=== PATIENT | female | born 1935 ===

== ENCOUNTER 2017-03-22 15:46 | Inpatient (IN) | payer MEDICARE, OTHER ==
--- NOTE | 2017-03-22 16:29 | C.PDOC ---
History Of Present Illness 81-year-old female, Diabetes and Hypertension, presents to the emergency department with complaints of weakness to lower extremities, pain, increased redness and swelling x2 weeks. States it started oozing a few days ago. Denies numbness/weakness, chest pain, shortness of breath, fever, or any other associated symptoms. No other complaints at this time. Time Seen by Provider: 03/22/17 16:29 Chief Complaint (Nursing): Abnormal Skin Integrity History Per: Patient History/Exam Limitations: no limitations Onset/Duration Of Symptoms: Days Current Symptoms Are (Timing): Still Present Past Medical History Reviewed: Historical Data, Nursing Documentation, Vital Signs Vital Signs: Last Vital Signs Temp 98.5 F 03/22/17 16:12 Pulse 83 03/22/17 16:12 Resp 18 03/22/17 16:12 BP 125/66 03/22/17 16:12 Pulse Ox 100 03/22/17 18:35 - Medical History PMH: HTN Family History: States: No Known Family Hx - Social History Hx Alcohol Use: No Hx Substance Use: No - Immunization History Hx Tetanus Toxoid Vaccination: Yes Hx Influenza Vaccination: Yes Hx Pneumococcal Vaccination: Yes Review Of Systems Except As Marked, All Systems Reviewed And Found Negative. Constitutional: Positive for: Weakness. Negative for: Fever, Chills Cardiovascular: Negative for: Chest Pain, Palpitations Respiratory: Negative for: Shortness of Breath Gastrointestinal: Negative for: Nausea, Vomiting Musculoskeletal: Positive for: Leg Pain Neurological: Negative for: Weakness, Numbness, Headache, Dizziness Physical Exam - Physical Exam Appears: Non-toxic, No Acute Distress Skin: Warm, Dry, No Rash Head: Atraumatic, Normacephalic Eye(s): bilateral: Normal Inspection, PERRL Nose: Normal Oral Mucosa: Moist Lips: Normal Appearing Neck: Normal ROM Chest: Symmetrical Cardiovascular: Rhythm Regular, No Murmur Respiratory: Normal Breath Sounds, No Accessory Muscle Use Extremity: Normal ROM, Tenderness, Pedal Edema, Calf Tenderness, Capillary Refill (<2 seconds), No Deformity, Other (Chronic venous changes, B/L pedal edema there is a foul odor and serous discharge from anterior tibular region) Neurological/Psych: Oriented x3, Normal Speech ED Course And Treatment - Laboratory Results Result Diagrams: 03/22/17 17:04 03/22/17 17:04 Lab Interpretation: Abnormal ECG: Interpreted By Me, Viewed By Me (Dr Aguayo) ECG Rhythm: Sinus Rhythm, 1st Degree HB ECG Interpretation: No Acute Changes, No Changes From Prior (04/22/09) O2 Sat by Pulse Oximetry: 100 Pulse Ox Interpretation: Normal - Other Rad CXR X-Ray: Viewed By Me, Read By Radiologist (Dr. Armstrong, Prudence VMahesh) Interpretation: IMPRESSION: Limited evaluation of the left costophrenic angle. Small left pleural effusion cannot be excluded. No significant left pleural effusion suspect. Appearance could well be due to the large body habitus and prominent soft tissues in portable technique. No consolidation appreciated. Possible minimal pulmonary venous congestion - chronicity unknown Medical Decision Making Medical Decision Making: Impression B/L lower extremity weakness, pain and swelling Plan: * EKG * BNP, CMP, Ketone Serum * CBC, ESR, PTT, PT * Chest X-Ray * Zosyn, IVFs, Vancomycin * Blood Cultures Case discussed with Dr Aguayo who also examined patient at bedside. He agrees with plan and recommends admission for cellulitis All diagnostics reviewed Contact hospitalist Dr Hardy for admission and accepts case for observation Disposition - Disposition Disposition: HOSPITALIZED Disposition Time: 17:44 Condition: STABLE - POA Present On Arrival: None - Clinical Impression Clinical Impression: Cellulitis of lower extremity - PA / LOGISTICS OPERATIONS MANAGER / Resident Statement MD/DO has examined the patient and agrees with the treatment plan. - Scribe Statement The provider has reviewed the documentation as recorded by the Scribe (Antony Chinchilla) All medical record entries made by the Scribe were at my direction and personally dictated by me. I have reviewed the chart and agree that the record accurately reflects my personal performance of the history, physical exam, medical decision making, and the department course for this patient. I have also personally directed, reviewed, and agree with the discharge instructions and disposition. Decision To Admit - Pt Status Changed To: Hospital Disposition Of: Observation - . Bed Request Type: Regular Admitting Physician: Kavitha Hardy Patient Diagnosis: Cellulitis of lower extremity
--- NOTE | 2017-03-22 16:52 | RAD ---
PROCEDURE: CHEST RADIOGRAPH, 1 VIEW HISTORY: SOB COMPARISON: None available. FINDINGS: LUNGS: Possible minimal pulmonary venous congestion -chronicity unknown. Shallow lung inspiration and large body habitus noted limited visualization of the left lung base PLEURA: No pneumothorax. A small left pleural effusion be excluded given the appearance. The soft tissue prominence body habitus and breast soft tissues contribute to this portable technique CARDIOVASCULAR: Cardiomegaly. Atherosclerotic vascular calcification - aortic knob OSSEOUS STRUCTURES: Bilateral shoulder arthrosis right greater than left sign VISUALIZED UPPER ABDOMEN: Normal. OTHER FINDINGS: None. IMPRESSION: Limited evaluation of the left costophrenic angle. Small left pleural effusion cannot be excluded. No significant left pleural effusion suspect. Appearance could well be due to the large body habitus and prominent soft tissues in portable technique No consolidation appreciated Possible minimal pulmonary venous congestion - chronicity unknown
[2017-03-22 17:12] LABS: BASO % 0.4 % (0.0-2.0); EOS # 0.5 K/uL (0.0-0.7); EOS % 4.6 % (0.0-4.0); HEMATOCRIT 28.3 % (34.0-47.0); LYMPH # 0.6 K/uL (1.0-4.3); MEAN CELL VOLUME 85.9 fL (81.0-99.0); MEAN CORPUSCULAR HGB CONC 32.6 g/dL (33.0-37.0); MEAN PLATELET VOLUME 8.6 fL (7.2-11.7); MONO # 0.7 K/uL (0.0-0.8); MONO % 7.3 % (0.0-10.0); PLATELET COUNT 292 K/uL (130-400); RED CELL DISTRIBUTION WIDTH 14.9 % (11.5-14.5)
[2017-03-22 17:16] LABS: INR 1.1
[2017-03-22 17:20] LABS: CHLORIDE 105 mmol/L (98-107); POTASSIUM 4.6 mmol/L (3.6-5.2); SODIUM 138 mmol/L (132-148)
[2017-03-22 17:22] LABS: GFR AFRICAN-AMERICAN > 60
[2017-03-22 17:23] LABS: ALB/GLOB RATIO 1.1 (1.0-2.1); ALKALINE PHOSPHATASE 80 U/L (38-126); ALT/SGPT 45 U/L (9-52); AST/SGOT 102 U/L (14-36); BILIRUBIN,TOTAL 0.6 mg/dL (0.2-1.3); BLOOD UREA NITROGEN 27 mg/dL (7-17); CARBON DIOXIDE 23 mmol/L (22-30); GLUCOSE,RANDOM 136 mg/dL (65-105)
[2017-03-22] MEDS ORDERED: Piperacillin/Tazobact 3.375 gm 100 ML IV STA (17:42)
[2017-03-22] MEDS ORDERED: Vancomycin 1 GM 1 GM/250 ML BAG IVPB ONE (17:55)
[2017-03-22] MEDS ORDERED: Piperacillin/Tazobact 3.375 gm 100 ML IVPB ONE (17:56)
[2017-03-22 18:36] LABS: ERYTHROCYTE SEDIMENTATION RATE 72 mm/hr (0-20)
[2017-03-22 18:59] LABS: EOSINOPHIL 8 % (0-4); NEUTROPHIL 80 % (50-75); TOTAL CELLS COUNTED 100
--- NOTE | 2017-03-22 19:52 | CP.PCM.HP ---
<Lilibeth Fuller - Last Filed: 03/22/17 19:47> History of Present Illness - History of Present Illness History of Present Illness: Chief Complaint: "Legs hurt" 81 year old female with past medical history of diabetes type II who presents to the ED from home by ambulance due to leg swelling and redness. Patient is a bad historian as she does not know who called the ambulance. Patient states she noticed both of her lower legs become red yesterday. Patient states her legs are only painful to touch. Patient states her legs are normally swollen at the end of the day. Per patient she has not been able to walk for the past 1-2 months but she normally uses a walker for assistance. Patient lives with her . Patient states she has never been previously admitted for her legs. Patient denies fever, headache, shortness of breath, chest pain, nausea, vomiting, diarrhea, or constipation. Present on Admission - Present on Admission Any Indicators Present on Admission: No History of DVT/PE: No History of Uncontrolled Diabetes: No Urinary Catheter: No Decubitus Ulcer Present: No Review of Systems - Review of Systems Systems not reviewed;Unavailable: Language Barrier (bangladeshi speaking) - Constitutional Constitutional: absent: Chills, Excessive Sweating, Fever, Headache - Cardiovascular Cardiovascular: absent: Chest Pain, Lightheadedness, Palpitations - Respiratory Respiratory: absent: Cough, Dyspnea - Gastrointestinal Gastrointestinal: absent: Abdominal Pain, Constipation, Diarrhea, Nausea, Vomiting - Genitourinary Genitourinary: absent: Change in Urinary Stream, Difficulty Urinating, Dysuria - Musculoskeletal Additional comments: Patient has not been able to walk for the past 1-2 months. Patient states she normally can walk with the help of a walker. - Neurological Neurological: absent: Dizziness, Numbness, Headaches Past Patient History - Infectious Disease Hx of Infectious Diseases: None - Past Medical History & Family History Past Medical History?: Yes Past Family History: Reviewed and not pertinent (Mother passed at the age of 101 ; Father passed at the age of 80) - Past Social History Smoking Status: Never Smoked Alcohol: None Drugs: Denies Home Situation {Lives}: With Family (lives with ) - ENDOCRINE/METABOLIC Hx Diabetes Mellitus Type 2: Yes - PSYCHIATRIC Hx Substance Use: No - ANESTHESIA Hx Anesthesia: No Meds Allergies/Adverse Reactions: Allergies Allergy/AdvReac Type Severity Reaction Status Date / Time No Known Allergies Allergy Verified 03/22/17 16:00 Physical Exam - Constitutional Appears: No Acute Distress - Eye Exam Eye Exam: EOMI, PERRL - ENT Exam ENT Exam: Mucous Membranes Moist - Respiratory Exam Respiratory Exam: Clear to Auscultation Bilateral, NORMAL BREATHING PATTERN - Cardiovascular Exam Cardiovascular Exam: REGULAR RHYTHM, +S1, +S2 - GI/Abdominal Exam GI & Abdominal Exam: Normal Bowel Sounds, Soft. absent: Distended, Tenderness - Extremities Exam Extremities exam: Positive for: pedal edema, tenderness Additional comments: Bilateral lower extremity edema, erythema - Neurological Exam Neurological exam: Alert, Oriented x3 - Skin Skin Exam: Rash, Warm Additional comments: Bilateral lower extremity red, warm, erythema Results - Vital Signs Recent Vital Signs: Last Vital Signs Temp 98.5 F 03/22/17 16:12 Pulse 83 03/22/17 16:12 Resp 18 03/22/17 16:12 BP 125/66 03/22/17 16:12 Pulse Ox 100 03/22/17 18:38 - Labs Result Diagrams: 03/22/17 17:04 03/22/17 17:04 Assessment & Plan - Assessment and Plan (Free Text) Assessment: 81 year old female with past medical history of diabetes type II who presents to the ED from home by ambulance due to leg swelling and redness. Plan: 1.) Cellulitis * Vancomycin IVPB 1G Q12h * Zosyn 3.375gm Q6h * f/u blood culture * No leukocytosis * Trend CBC daily * Monitor daily for fevers * f/u ESR * f/u venous dopplers * PT 2.) Diabetes Type II * f/u hemoglobin A1C * Insulin Sliding Scale * Accu Checks * Patient home medications unknown due to patient being a poor historian * f/u with family and or pharmacy for home medication * Primary Care Doctor Rhina as per patient 3.) Anemia * Monitor H/H * 9.2/28.3 * Baseline unknown * f/u Iron Studies * Monitor CBC 4.) Elevated AST * Monitor AST * If remains high: order hepatitis level 5.) Pleural Effusion * Chest X-ray ordered (03/22/17): Limited evaluation of the left costophrenic angle. Small left pleural effusion cannot be excluded. No significant pleural effusion suspect. Appearance could well be due to the large body habitus and prominent soft tissues in portable technique. No consolidation appreciated. * Ordered Lasix 40IV x1 * O2: 100% RA * BNP 272 6.) Prophylaxis * Protonix 40mg PO daily * SCD contraindicated * Lovenox 40mg SQ daily - Date & Time Date: 03/22/17 Time: 17:40 <Martin Bowers - Last Filed: 03/23/17 15:52> Results - Vital Signs Recent Vital Signs: Last Vital Signs Temp 99.3 F 03/23/17 07:05 Pulse 95 H 03/23/17 07:05 Resp 18 03/23/17 07:05 BP 131/58 L 03/23/17 10:22 Pulse Ox 97 03/23/17 07:05 - Labs Result Diagrams: 03/23/17 06:22 03/23/17 06:22 Labs: Laboratory Results - last 24 hr 03/22/17 03/23/17 03/23/17 21:42 06:22 06:22 WBC 10.0 RBC 3.31 L Hgb 9.3 L Hct 28.6 L MCV 86.5 MCH 27.9 MCHC 32.3 L RDW 14.9 H Plt Count 282 MPV 9.0 Neut % (Auto) 81.7 H Lymph % (Auto) 7.6 L [place] % (Auto) 8.9 Eos % (Auto) 1.7 Baso % (Auto) 0.1 Neut # 8.2 H Lymph # 0.8 L [place] # 0.9 H Eos # 0.2 Baso # 0.0 Neutrophils % (Manual) 82 H Lymphocytes % (Manual) 7 L Monocytes % (Manual) 6 Eosinophils % (Manual) 3 Basophils % (Manual) 2 Platelet Estimate Normal Hypochromasia (manual) Slight Poikilocytosis (manual Slight Anisocytosis (manual) Slight Sodium 137 Potassium 4.1 Chloride 98 Carbon Dioxide 26 Anion Gap 17 BUN 23 H Creatinine 1.0 Est GFR ( Amer) > 60 Est GFR (Non-Af Amer) 53 POC Glucose (mg/dL) 215 H Random Glucose 205 H Hemoglobin A1c Calcium 8.6 Iron TIBC % Saturation Ferritin 40.6 Total Bilirubin 0.6 AST 103 H ALT 52 Alkaline Phosphatase 84 Total Protein 6.5 Albumin 3.3 L Globulin 3.2 Albumin/Globulin Ratio 1.0 03/23/17 03/23/17 03/23/17 06:22 06:22 06:39 WBC RBC Hgb Hct MCV MCH MCHC RDW Plt Count MPV Neut % (Auto) Lymph % (Auto) [place] % (Auto) Eos % (Auto) Baso % (Auto) Neut # Lymph # [place] # Eos # Baso # Neutrophils % (Manual) Lymphocytes % (Manual) Monocytes % (Manual) Eosinophils % (Manual) Basophils % (Manual) Platelet Estimate Hypochromasia (manual) Poikilocytosis (manual Anisocytosis (manual) Sodium Potassium Chloride Carbon Dioxide Anion Gap BUN Creatinine Est GFR ( Amer) Est GFR (Non-Af Amer) POC Glucose (mg/dL) 213 H Random Glucose Hemoglobin A1c 9.7 H Calcium Iron 25 L TIBC 273 % Saturation 9 L Ferritin Total Bilirubin AST ALT Alkaline Phosphatase Total Protein Albumin Globulin Albumin/Globulin Ratio 03/23/17 11:28 WBC RBC Hgb Hct MCV MCH MCHC RDW Plt Count MPV Neut % (Auto) Lymph % (Auto) [place] % (Auto) Eos % (Auto) Baso % (Auto) Neut # Lymph # [place] # Eos # Baso # Neutrophils % (Manual) Lymphocytes % (Manual) Monocytes % (Manual) Eosinophils % (Manual) Basophils % (Manual) Platelet Estimate Hypochromasia (manual) Poikilocytosis (manual Anisocytosis (manual) Sodium Potassium Chloride Carbon Dioxide Anion Gap BUN Creatinine Est GFR ( Amer) Est GFR (Non-Af Amer) POC Glucose (mg/dL) 338 H Random Glucose Hemoglobin A1c Calcium Iron TIBC % Saturation Ferritin Total Bilirubin AST ALT Alkaline Phosphatase Total Protein Albumin Globulin Albumin/Globulin Ratio Attending/Attestation - Attestation I have personally seen and examined this patient.: Yes I have fully participated in the care of the patient.: Yes I have reviewed all pertinent clinical information: Yes Notes (Text): 03/23/17 15:51 Patient was seen and examined at bedside with the resident Patient admitted for cellulitis and bilateral lower extremity edema We started the patient on antibiotics and also on Lasix We will obtain detailed the history from patient's family and also we'll obtain her home medication I discussed the plan of care with the resident in detail and agree with the above history and physical and assessment/plan.
[2017-03-22] MEDS: (Novolin R) Insulin Human Regular 100 units/ml vial SC SCH (23:15)
[2017-03-23] MEDS: Piperacill/Tazo 3.375gm in Dex 3.375 GM/50 ML BAG IVPB SCH ×4 (00:57→19:17)
[2017-03-23] MEDS: Vancomycin 1 gm/NS 200 ml 1 GM/200 ML BAG IVPB SCH ×2 (04:54→17:25)
[2017-03-23 06:45] LABS: CHLORIDE 98 mmol/L (98-107); POTASSIUM 4.1 mmol/L (3.6-5.2); SODIUM 137 mmol/L (132-148)
[2017-03-23 06:47] LABS: AST/SGOT 103 U/L (14-36); BILIRUBIN,TOTAL 0.6 mg/dL (0.2-1.3); CARBON DIOXIDE 26 mmol/L (22-30); GFR AFRICAN-AMERICAN > 60
[2017-03-23 06:48] LABS: ALKALINE PHOSPHATASE 84 U/L (38-126); ALT/SGPT 52 U/L (9-52); BLOOD UREA NITROGEN 23 mg/dL (7-17); CALCIUM 8.6 mg/dl (8.6-10.4); GLUCOSE,RANDOM 205 mg/dL (65-105); TOTAL PROTEIN 6.5 g/dL (6.3-8.3)
[2017-03-23 07:00] LABS: IRON 25 ug/dL (37-170)
[2017-03-23 07:08] LABS: BASO % 0.1 % (0.0-2.0); EOS # 0.2 K/uL (0.0-0.7); EOS % 1.7 % (0.0-4.0); HEMATOCRIT 28.6 % (34.0-47.0); LYMPH # 0.8 K/uL (1.0-4.3); LYMPH % 7.6 % (20.0-40.0); MEAN CELL VOLUME 86.5 fL (81.0-99.0); MEAN CORPUSCULAR HEMOGLOBIN 27.9 pg (27.0-31.0); MEAN CORPUSCULAR HGB CONC 32.3 g/dL (33.0-37.0); MONO # 0.9 K/uL (0.0-0.8); MONO % 8.9 % (0.0-10.0); PLATELET COUNT 282 K/uL (130-400); RED CELL DISTRIBUTION WIDTH 14.9 % (11.5-14.5)
[2017-03-23 08:47] LABS: BASOPHIL 2 % (0-2); EOSINOPHIL 3 % (0-4); NEUTROPHIL 82 % (50-75); TOTAL CELLS COUNTED 100
[2017-03-23] MEDS: (Novolin R) Insulin Human Regular 100 units/ml vial SC SCH ×4 (10:22→21:45)
[2017-03-23] MEDS: Pantoprazole 40 mg EC Tab PO SCH (10:22)
[2017-03-23] MEDS: Enoxaparin 40 mg Syringe SC SCH (11:05)
--- NOTE | 2017-03-23 11:13 | CARD ---
APPROVED REPORT EKG Measurement Heart [id number] <Conclusion> Sinus rhythm with 1st degree AV block Nonspecific ST abnormality Abnormal ECG
--- NOTE | 2017-03-23 17:16 | CP.PCM.PN ---
<Sandhya Pendleton - Last Filed: 03/23/17 20:54> Subjective - Date & Time of Evaluation Date of Evaluation: 03/23/17 Time of Evaluation: 08:00 - Subjective Subjective: PGY-1 Medicine note- Dr. Bowers's Service Patient seen and examined at bedside and in no acute distress. Patient says her legs are not bothering her much. Patient denies shortness of breath, chest pain, nausea, or vomiting. Patient has not had a bowel movement yesterday or today. Patient is urinating normally. Patient is eating well. Objective - Vital Signs/Intake and Output Vital Signs (last 24 hours): Temp Pulse Resp BP Pulse Ox 99.3 F 95 H 18 131/58 L 97 03/23/17 07:05 03/23/17 07:05 03/23/17 07:05 03/23/17 10:22 03/23/17 07:05 Intake and Output: 03/23/17 03/23/17 06:59 18:59 Intake Total 400 240 Output Total 600 Balance -200 240 - Medications Medications: Current Medications Enoxaparin Sodium (Lovenox) 40 mg SC DAILY [facility] Last Admin: 03/23/17 11:05 Dose: 40 mg Folic Acid (Folic Acid) 1 mg PO DAILY [facility] Furosemide (Lasix) 20 mg PO DAILY [facility] Last Admin: 03/23/17 10:22 Dose: 20 mg Hydrochlorothiazide (Hydrodiuril) 25 mg PO DAILY [facility] Last Admin: 03/23/17 10:22 Dose: 25 mg Piperacillin Sod/Tazobactam Sod (Zosyn 3.375 Gm Iv Premix) 3.375 gm in 50 mls @ 100 mls/hr IVPB Q6H [facility] Last Admin: 03/23/17 12:04 Dose: 100 mls/hr Vancomycin/Sodium Chloride (Vancocin) 1 gm in 200 mls @ 133 mls/hr IVPB Q12H [facility] Stop: 03/28/17 05:01 Last Admin: 03/23/17 04:54 Dose: 133 mls/hr Insulin Human Isoph/Insulin Regular (Novolin 70/30 (70/30 Units/Ml) 10 Ml) 20 units SC Q12 [facility] Insulin Human Regular (Novolin R) 0 unit SC ACHS [facility] PRN Reason: Protocol Last Admin: 03/23/17 14:29 Dose: 6 unit Levothyroxine Sodium (Synthroid) 25 mcg PO DAILY@0630 [facility] Losartan Potassium (Cozaar) 100 mg PO DAILY [facility] Last Admin: 03/23/17 10:22 Dose: 100 mg Metformin HCl (Glucophage) 500 mg PO BID [facility] Pantoprazole Sodium (Protonix Ec Tab) 40 mg PO DAILY [facility] Last Admin: 03/23/17 10:22 Dose: 40 mg Sitagliptin Phosphate (Januvia) 50 mg PO DAILY [facility] - Labs Labs: 03/23/17 06:22 03/23/17 06:22 PT 11.9 SECONDS (9.7-12.2) 03/22/17 17:04 INR 1.1 03/22/17 17:04 APTT 25 SECONDS (21-34) 03/22/17 17:04 - Constitutional Appears: Well, No Acute Distress - Head Exam Head Exam: ATRAUMATIC, NORMAL INSPECTION, NORMOCEPHALIC - Eye Exam Eye Exam: EOMI, Normal appearance, PERRL - ENT Exam ENT Exam: Mucous Membranes Moist, Normal Exam - Neck Exam Neck Exam: Full ROM, Normal Inspection. absent: Lymphadenopathy - Respiratory Exam Respiratory Exam: Clear to Ausculation Bilateral, NORMAL BREATHING PATTERN. absent: Rhonchi, Wheezes, Stridor - Cardiovascular Exam Cardiovascular Exam: REGULAR RHYTHM, RRR, +S1, +S2. absent: Gallop, Rubs, Murmur - GI/Abdominal Exam GI & Abdominal Exam: Soft, Normal Bowel Sounds. absent: Firm, Guarding, Tenderness - Extremities Exam Extremities Exam: Full ROM Additional comments: ulceration and erythema b/l on legs. feet dry and wrinkled - Back Exam Back Exam: NORMAL INSPECTION - Neurological Exam Neurological Exam: Alert, Awake, Oriented x3 - Psychiatric Exam Psychiatric exam: Normal Affect, Normal Mood - Skin Skin Exam: Dry, Warm Additional comments: b/l lower leg erythema with ulcerations Assessment and Plan (1) Cellulitis of lower extremity Assessment & Plan: Vancomycin IVPB 1G Q12h Zosyn 3.375gm Q6h f/u blood culture No leukocytosis CBC daily (HgB 9.3 on 03/23) Monitor daily for fevers venous dopplersL no abnormal findings of examined veins PT Wound care ordered Status: Acute (2) Poorly controlled diabetes mellitus Assessment & Plan: hemoglobin A1C 9.7 Insulin Sliding Scale Accu Checks Metformin 500mg BID Januvia 50mg PO Daily Novolin 70-30 20 units BID Status: Acute (3) Iron deficiency anemia Assessment & Plan: monitor H/H - 9.3/28.6 iron 25 TIBC 273 Ferritin 40.6 Ferrlecit 125mg IVPB daily Status: Acute (4) Hypothyroidism Assessment & Plan: Continue home med Synthroid 25mcg PO Daily Status: Acute (5) Hypertension Assessment & Plan: continue home medications: Lasix 20 mg PO daily HCTZ 25mg PO daily Losartan 100 mg PO daily Lasix 20 mg PO daily Status: Acute (6) Prophylactic measure Assessment & Plan: Lovenox 40 mg SC daily Protonix 40 mg PO daily SCDs Status: Acute <Martin Bowers - Last Filed: 03/24/17 13:56> Objective - Vital Signs/Intake and Output Vital Signs (last 24 hours): Temp Pulse Resp BP Pulse Ox 98.7 F 73 20 131/72 97 03/24/17 07:05 03/24/17 10:09 03/24/17 07:05 03/24/17 10:11 03/24/17 07:05 - Medications Medications: Current Medications Docusate Sodium (Colace) 100 mg PO BID [facility] Enoxaparin Sodium (Lovenox) 40 mg SC DAILY [facility] Last Admin: 03/24/17 10:11 Dose: 40 mg Ferric Sodium Gluconate Complex (Ferrlecit) 125 mg IVPB DAILY [facility] Stop: 03/31/17 17:46 Last Admin: 03/24/17 10:10 Dose: 125 mg Folic Acid (Folic Acid) 1 mg PO DAILY [facility] Last Admin: 03/24/17 10:12 Dose: 1 mg Furosemide (Lasix) 20 mg PO DAILY [facility] Last Admin: 03/24/17 10:11 Dose: 20 mg Hydrochlorothiazide (Hydrodiuril) 25 mg PO DAILY [facility] Last Admin: 03/24/17 10:11 Dose: 25 mg Piperacillin Sod/Tazobactam Sod (Zosyn 3.375 Gm Iv Premix) 3.375 gm in 50 mls @ 100 mls/hr IVPB Q6H [facility] Last Admin: 03/24/17 11:28 Dose: 100 mls/hr Vancomycin/Sodium Chloride (Vancocin) 1 gm in 200 mls @ 133 mls/hr IVPB Q12H [facility] Stop: 03/28/17 05:01 Last Admin: 03/24/17 05:30 Dose: 133 mls/hr Insulin Human Isoph/Insulin Regular (Novolin 70/30 (70/30 Units/Ml) 10 Ml) 20 units SC Q12 [facility] Last Admin: 03/24/17 10:12 Dose: 20 units Insulin Human Regular (Novolin R) 0 unit SC ACHS [facility] PRN Reason: Protocol Last Admin: 03/24/17 13:17 Dose: 6 unit Levothyroxine Sodium (Synthroid) 25 mcg PO DAILY@0630 [facility] Last Admin: 03/24/17 06:22 Dose: 25 mcg Losartan Potassium (Cozaar) 100 mg PO DAILY [facility] Last Admin: 03/24/17 10:12 Dose: 100 mg Metformin HCl (Glucophage) 500 mg PO BID [facility] Last Admin: 03/24/17 10:12 Dose: 500 mg Pantoprazole Sodium (Protonix Ec Tab) 40 mg PO DAILY [facility] Last Admin: 03/24/17 10:11 Dose: 40 mg Polyethylene Glycol (Miralax) 17 gm PO DAILY [facility] Last Admin: 03/24/17 13:03 Dose: 17 gm Sitagliptin Phosphate (Januvia) 50 mg PO DAILY [facility] Last Admin: 03/24/17 10:12 Dose: 50 mg - Labs Labs: 03/24/17 07:01 03/24/17 07:01 PT 11.9 SECONDS (9.7-12.2) 03/22/17 17:04 INR 1.1 03/22/17 17:04 APTT 25 SECONDS (21-34) 03/22/17 17:04 Attending/Attestation - Attestation I have personally seen and examined this patient.: Yes I have fully participated in the care of the patient.: Yes I have reviewed all pertinent clinical information, including history, physical exam and plan: Yes Notes (Text): 03/24/17 13:55 Patient was seen and examined at bedside with the resident Continue antibiotics for cellulitis We will restart patient's home medication including insulin for optimal control of her blood sugar Patient stated that she is feeling slightly better. I discussed with the patient's family on the phone. I agree with the history and physical and assessment/plan the resident.
[2017-03-23] MEDS: Ferric Sodium Gluconat Complex 62.5 mg/5 ml Vial IVPB SCH (19:06)
[2017-03-23] MEDS ORDERED: Bisacodyl 5mg EC Tab PO ONE (20:49)
[2017-03-23] MEDS: (Novolin 70/30) NPH/Regular 70/30 Units/ml 10 ml vial SC SCH (21:51)
[2017-03-24] MEDS: Vancomycin 1 gm/NS 200 ml 1 GM/200 ML BAG IVPB SCH ×2 (05:30→16:55)
[2017-03-24] MEDS: Piperacill/Tazo 3.375gm in Dex 3.375 GM/50 ML BAG IVPB SCH ×5 (05:32→23:48)
[2017-03-24] MEDS: Levothyroxine 25 MCG TAB PO SCH (06:22)
[2017-03-24 07:12] LABS: BASO % 0.5 % (0.0-2.0); EOS # 0.4 K/uL (0.0-0.7); EOS % 4.6 % (0.0-4.0); HEMATOCRIT 26.5 % (34.0-47.0); LYMPH # 1.2 K/uL (1.0-4.3); LYMPH % 16.4 % (20.0-40.0); MEAN CELL VOLUME 86.1 fL (81.0-99.0); MEAN CORPUSCULAR HEMOGLOBIN 27.5 pg (27.0-31.0); MEAN PLATELET VOLUME 9.1 fL (7.2-11.7); MONO # 0.8 K/uL (0.0-0.8); MONO % 10.1 % (0.0-10.0); RED CELL DISTRIBUTION WIDTH 14.8 % (11.5-14.5); WHITE BLOOD COUNT 7.6 K/uL (4.8-10.8)
[2017-03-24 07:32] LABS: CHLORIDE 97 mmol/L (98-107)
[2017-03-24 07:33] LABS: SODIUM 133 mmol/L (132-148)
[2017-03-24 07:35] LABS: ALKALINE PHOSPHATASE 63 U/L (38-126); ALT/SGPT 40 U/L (9-52); AST/SGOT 62 U/L (14-36); BILIRUBIN,TOTAL 0.6 mg/dL (0.2-1.3); BLOOD UREA NITROGEN 22 mg/dL (7-17); CARBON DIOXIDE 29 mmol/L (22-30); GFR AFRICAN-AMERICAN > 60
[2017-03-24 07:36] LABS: CALCIUM 8.1 mg/dl (8.6-10.4); GLUCOSE,RANDOM 207 mg/dL (65-105); MAGNESIUM 1.8 mg/dL (1.6-2.3); PHOSPHOROUS 3.6 mg/dL (2.5-4.5)
[2017-03-24] MEDS: (Novolin R) Insulin Human Regular 100 units/ml vial SC SCH ×4 (09:06→21:43)
[2017-03-24] MEDS: Ferric Sodium Gluconat Complex 62.5 mg/5 ml Vial IVPB SCH (10:10)
[2017-03-24] MEDS: Pantoprazole 40 mg EC Tab PO SCH (10:11)
[2017-03-24] MEDS: Enoxaparin 40 mg Syringe SC SCH (10:11)
[2017-03-24] MEDS: (Novolin 70/30) NPH/Regular 70/30 Units/ml 10 ml vial SC SCH ×2 (10:12→21:48)
--- NOTE | 2017-03-24 10:41 | VASCLAB ---
PROCEDURE: Lower Extremity Venous Duplex Exam. HISTORY: cellulitis PRIORS: None. TECHNIQUE: Bilateral common femoral, femoral, popliteal and posterior tibial, peroneal and great saphenous veins were evaluated. Flow was assessed with color Doppler, compressibility, assessment of phasic flow and augmentation response. Report prepared by CHINTAN Gill, RVT FINDINGS: RIGHT: 1. Common Femoral Vein: 1.1. Compressibility - Fully compressible: Thrombus - None : Flow - Phasic: Augmentation -Normal: Reflux - None. 2. Femoral Vein: 2.1. Compressibility - Fully compressible: Thrombus - None : Flow - Phasic: Augmentation -Normal: Reflux - None. 3. Popliteal Vein: 3.1. Compressibility - Fully compressible: Thrombus - None : Flow - Phasic: Augmentation -Normal: Reflux - None. 4. Posterior Tibial Vein: 4.1. Compressibility - Not optimally obtained. 5. Peroneal Vein: 5.1. Compressibility - Not optimally obtained. . 6. Great Saphenous Vein: 6.1. Compressibility - Fully compressible: Thrombus - None: Flow - Phasic: Augmentation - Normal: Reflux - None. LEFT: 1. Common Femoral Vein: 1.1. Compressibility - Fully compressible: Thrombus - None: Flow - Phasic: Augmentation -Normal: Reflux - None. 2. Femoral Vein: 2.1. Compressibility - Fully compressible in the proximal and middle segments. Distal segment not optimally seen.: Thrombus - None: Flow - Phasic: Augmentation -Normal: Reflux - None. 3. Popliteal Vein: 3.1. Compressibility - Fully compressible: Thrombus - None : Flow - Phasic: Augmentation -Normal: Reflux - None. 4. Posterior Tibial Vein: 4.1. Compressibility - Not optimally obtained. 5. Peroneal Vein: 5.1. Compressibility - Not optimally obtained. 6. Great Saphenous Vein: 6.1. Compressibility - Fully compressible: Thrombus - None: Flow - Phasic: Augmentation - Normal: Reflux - None. OTHER FINDINGS: Due to swelling in the calf, bilateral peroneal and posterior tibial vein were not visualized. Technically difficult and limited study due to severe swelling and patient body habitus. IMPRESSION: Right: No evidence of deep or superficial vein thrombosis of the right lower extremity. Normal valve function noted of the right side. Left: No evidence of deep or superficial vein thrombosis of the left lower extremity in the optimally visualized segments. Normal valve function noted of the left side.
[2017-03-24] MEDS: POLYETHYLENE GLYCOL 3350 17 GM/Dose PACKET PO SCH (13:03)
--- NOTE | 2017-03-24 20:50 | CP.PCM.PN ---
<Felix Davis - Last Filed: 03/24/17 20:47> Subjective - Date & Time of Evaluation Date of Evaluation: 03/24/17 Time of Evaluation: 10:00 - Subjective Subjective: PGY2 on medicine Dr. Bowers service: Pt seen and examined at bedside this morning. Pt complains constipation and mild bilateral leg pain. No other acute complaints at the moment. Objective - Vital Signs/Intake and Output Vital Signs (last 24 hours): Temp Pulse Resp BP Pulse Ox 98 F 81 20 133/65 96 03/24/17 16:00 03/24/17 16:00 03/24/17 16:00 03/24/17 16:00 03/24/17 16:00 Intake and Output: 03/24/17 03/25/17 18:59 06:59 Intake Total 710 Output Total 1 Balance 709 - Medications Medications: Current Medications Acetaminophen (Tylenol 325mg Tab) 650 mg PO Q6 PRN PRN Reason: Pain, Mild (1-3) Last Admin: 03/24/17 17:42 Dose: 650 mg Docusate Sodium (Colace) 100 mg PO BID REPLACED BY [facility] Enoxaparin Sodium (Lovenox) 40 mg SC DAILY REPLACED BY [facility] Last Admin: 03/24/17 10:11 Dose: 40 mg Ferric Sodium Gluconate Complex (Ferrlecit) 125 mg IVPB DAILY REPLACED BY [facility] Stop: 03/31/17 17:46 Last Admin: 03/24/17 10:10 Dose: 125 mg Folic Acid (Folic Acid) 1 mg PO DAILY REPLACED BY [facility] Last Admin: 03/24/17 10:12 Dose: 1 mg Furosemide (Lasix) 20 mg PO DAILY REPLACED BY [facility] Last Admin: 03/24/17 10:11 Dose: 20 mg Hydrochlorothiazide (Hydrodiuril) 25 mg PO DAILY REPLACED BY [facility] Last Admin: 03/24/17 10:11 Dose: 25 mg Piperacillin Sod/Tazobactam Sod (Zosyn 3.375 Gm Iv Premix) 3.375 gm in 50 mls @ 100 mls/hr IVPB Q6H REPLACED BY [facility] Last Admin: 03/24/17 17:46 Dose: 100 mls/hr Vancomycin/Sodium Chloride (Vancocin) 1 gm in 200 mls @ 133 mls/hr IVPB Q12H REPLACED BY [facility] Stop: 03/28/17 05:01 Last Admin: 03/24/17 16:55 Dose: 133 mls/hr Insulin Human Isoph/Insulin Regular (Novolin 70/30 (70/30 Units/Ml) 10 Ml) 20 units SC Q12 REPLACED BY [facility] Last Admin: 03/24/17 10:12 Dose: 20 units Insulin Human Regular (Novolin R) 0 unit SC ACHS [facility] PRN Reason: Protocol Last Admin: 03/24/17 16:40 Dose: 3 unit Ketorolac Tromethamine (Toradol) 15 mg IVP Q6 PRN PRN Reason: Pain, moderate (4-7) Last Admin: 03/24/17 18:11 Dose: 15 mg Levothyroxine Sodium (Synthroid) 25 mcg PO DAILY@0630 REPLACED BY [facility] Last Admin: 03/24/17 06:22 Dose: 25 mcg Losartan Potassium (Cozaar) 100 mg PO DAILY REPLACED BY [facility] Last Admin: 03/24/17 10:12 Dose: 100 mg Metformin HCl (Glucophage) 500 mg PO BID REPLACED BY [facility] Last Admin: 03/24/17 10:12 Dose: 500 mg Pantoprazole Sodium (Protonix Ec Tab) 40 mg PO DAILY REPLACED BY [facility] Last Admin: 03/24/17 10:11 Dose: 40 mg Polyethylene Glycol (Miralax) 17 gm PO DAILY REPLACED BY [facility] Last Admin: 03/24/17 13:03 Dose: 17 gm Sitagliptin Phosphate (Januvia) 50 mg PO DAILY REPLACED BY [facility] Last Admin: 03/24/17 10:12 Dose: 50 mg - Labs Labs: 03/24/17 07:01 03/24/17 07:01 PT 11.9 SECONDS (9.7-12.2) 03/22/17 17:04 INR 1.1 03/22/17 17:04 APTT 25 SECONDS (21-34) 03/22/17 17:04 - Constitutional Appears: Non-toxic, No Acute Distress - Head Exam Head Exam: NORMOCEPHALIC - Eye Exam Eye Exam: Normal appearance - ENT Exam ENT Exam: Mucous Membranes Moist - Respiratory Exam Respiratory Exam: Clear to Ausculation Bilateral, NORMAL BREATHING PATTERN. absent: Rhonchi, Wheezes - Cardiovascular Exam Cardiovascular Exam: REGULAR RHYTHM, +S1, +S2. absent: Gallop, Rubs - GI/Abdominal Exam GI & Abdominal Exam: Soft, Normal Bowel Sounds - Extremities Exam Extremities Exam: absent: Pedal Edema - Neurological Exam Neurological Exam: Alert, Awake, Oriented x3 - Psychiatric Exam Psychiatric exam: Normal Mood - Skin Skin Exam: Intact Additional comments: bilateral lower extremities erythema Assessment and Plan - Assessment and Plan (Free Text) Assessment: (1) Cellulitis of lower extremity Assessment & Plan: 03/24: blood culture negative x24 hours. Toradol started. F/U vanco trough. Vancomycin IVPB 1G Q12h Zosyn 3.375gm Q6h f/u blood culture No leukocytosis CBC daily (HgB 9.3 on 03/23) Monitor daily for fevers venous dopplersL no abnormal findings of examined veins PT Wound care ordered Status: Acute (2) Poorly controlled diabetes mellitus Assessment & Plan: hemoglobin A1C 9.7 Insulin Sliding Scale Accu Checks Metformin 500mg BID Januvia 50mg PO Daily Novolin 70-30 20 units BID Status: Acute (3) Iron deficiency anemia Assessment & Plan: monitor H/H iron 25 TIBC 273 Ferritin 40.6 Ferrlecit 125mg IVPB daily Status: Acute (4) Hypothyroidism Assessment & Plan: Continue home med Synthroid 25mcg PO Daily Status: Acute (5) Hypertension Assessment & Plan: continue home medications: Lasix 20 mg PO daily HCTZ 25mg PO daily Losartan 100 mg PO daily Lasix 20 mg PO daily Status: Acute (6) Prophylactic measure Assessment & Plan: Lovenox 40 mg SC daily Protonix 40 mg PO daily [facility] <Martin Bowers - Last Filed: 04/02/17 16:56> Objective - Vital Signs/Intake and Output Vital Signs (last 24 hours): Temp Pulse Resp BP Pulse Ox 97.9 F 86 19 112/64 95 04/02/17 07:51 04/02/17 11:00 04/02/17 07:51 04/02/17 11:04 04/02/17 07:51 - Medications Medications: Current Medications Acetaminophen (Tylenol 325mg Tab) 650 mg PO Q6 PRN PRN Reason: Pain, Mild (1-3) Last Admin: 04/02/17 16:10 Dose: 650 mg Docusate Sodium (Colace) 100 mg PO BID REPLACED BY [facility] Last Admin: 04/02/17 11:05 Dose: 100 mg Folic Acid (Folic Acid) 1 mg PO DAILY REPLACED BY [facility] Last Admin: 04/02/17 11:05 Dose: 1 mg Furosemide (Lasix) 20 mg PO DAILY REPLACED BY [facility] Last Admin: 04/02/17 11:04 Dose: 20 mg Hydrochlorothiazide (Hydrodiuril) 25 mg PO DAILY REPLACED BY [facility] Last Admin: 04/02/17 11:04 Dose: 25 mg Insulin Human Isoph/Insulin Regular (Novolin 70/30 (70/30 Units/Ml) 10 Ml) 20 units SC Q12 [facility] Last Admin: 04/02/17 11:05 Dose: 20 units Insulin Human Regular (Novolin R) 0 unit SC ACHS [facility] PRN Reason: Protocol Last Admin: 04/02/17 14:04 Dose: 6 unit Lactic Acid (Lac-Hydrin 12% Lotion (225 G)) 0 gm EXT DAILY REPLACED BY [facility] Last Admin: 04/02/17 11:04 Dose: 1 applic Levothyroxine Sodium (Synthroid) 25 mcg PO DAILY@0630 REPLACED BY [facility] Last Admin: 04/02/17 05:47 Dose: 25 mcg Losartan Potassium (Cozaar) 100 mg PO DAILY REPLACED BY [facility] Last Admin: 04/02/17 11:04 Dose: 100 mg Metformin HCl (Glucophage) 500 mg PO BID REPLACED BY [facility] Last Admin: 04/02/17 11:05 Dose: 500 mg Pantoprazole Sodium (Protonix Ec Tab) 40 mg PO DAILY [facility] Last Admin: 04/02/17 11:05 Dose: 40 mg Polyethylene Glycol (Miralax) 17 gm PO DAILY [facility] Last Admin: 04/02/17 11:04 Dose: 17 gm Sitagliptin Phosphate (Januvia) 50 mg PO DAILY REPLACED BY [facility] Last Admin: 04/02/17 11:04 Dose: 50 mg Zolpidem Tartrate (Ambien) 5 mg PO HS PRN PRN Reason: Insomnia Last Admin: 03/27/17 22:31 Dose: 5 mg - Labs Labs: 04/02/17 07:01 04/02/17 07:01 PT 11.9 SECONDS (9.7-12.2) 03/22/17 17:04 INR 1.1 03/22/17 17:04 APTT 25 SECONDS (21-34) 03/22/17 17:04 Attending/Attestation - Attestation I have personally seen and examined this patient.: Yes I have fully participated in the care of the patient.: Yes I have reviewed all pertinent clinical information, including history, physical exam and plan: Yes Notes (Text): 04/02/17 16:56 Patient was seen and examined at bedside with the resident This is late computer entry We will continue IV antibiotics for cellulitis of the lower extremities Continue physical therapy Discussed with the family. I discussed the plan of care with the resident and I agree with history and physical and assessment/plan documented by the resident.
[2017-03-25] MEDS: Vancomycin 1 gm/NS 200 ml 1 GM/200 ML BAG IVPB SCH ×2 (05:00→16:47)
[2017-03-25] MEDS: Levothyroxine 25 MCG TAB PO SCH (05:56)
[2017-03-25] MEDS: Piperacill/Tazo 3.375gm in Dex 3.375 GM/50 ML BAG IVPB SCH ×4 (06:52→23:49)
[2017-03-25] MEDS: (Novolin R) Insulin Human Regular 100 units/ml vial SC SCH ×4 (07:35→21:51)
--- NOTE | 2017-03-25 08:28 | CP.PCM.PN ---
<Felix Davis - Last Filed: 03/25/17 08:19> Subjective - Date & Time of Evaluation Date of Evaluation: 03/25/17 Time of Evaluation: 08:00 - Subjective Subjective: PGY3 on medicine Dr. Doss service: Pt seen and examined at bedside this morning. Pt reports having BM yesterday. Pt also complains bilateral leg pain secondary to cellulitis but stable. Overnight RN reports stage II, 3cm open pressure ulcer on right inner thigh, aloe vera applied and wound care consulted. Objective - Vital Signs/Intake and Output Vital Signs (last 24 hours): Temp Pulse Resp BP Pulse Ox 98.3 F 73 20 134/65 96 03/24/17 23:31 03/24/17 23:31 03/24/17 23:31 03/24/17 23:31 03/24/17 23:31 Intake and Output: 03/25/17 03/25/17 06:59 18:59 Intake Total 600 Output Total 1 Balance 599 - Medications Medications: Current Medications Acetaminophen (Tylenol 325mg Tab) 650 mg PO Q6 PRN PRN Reason: Pain, Mild (1-3) Last Admin: 03/24/17 17:42 Dose: 650 mg Docusate Sodium (Colace) 100 mg PO BID [facility] Last Admin: 03/24/17 17:45 Dose: 100 mg Enoxaparin Sodium (Lovenox) 40 mg SC DAILY [facility] Last Admin: 03/24/17 10:11 Dose: 40 mg Ferric Sodium Gluconate Complex (Ferrlecit) 125 mg IVPB DAILY [facility] Stop: 03/31/17 17:46 Last Admin: 03/24/17 10:10 Dose: 125 mg Folic Acid (Folic Acid) 1 mg PO DAILY [facility] Last Admin: 03/24/17 10:12 Dose: 1 mg Furosemide (Lasix) 20 mg PO DAILY [facility] Last Admin: 03/24/17 10:11 Dose: 20 mg Hydrochlorothiazide (Hydrodiuril) 25 mg PO DAILY [facility] Last Admin: 03/24/17 10:11 Dose: 25 mg Piperacillin Sod/Tazobactam Sod (Zosyn 3.375 Gm Iv Premix) 3.375 gm in 50 mls @ 100 mls/hr IVPB Q6H [facility] Last Admin: 03/25/17 06:52 Dose: 100 mls/hr Vancomycin/Sodium Chloride (Vancocin) 1 gm in 200 mls @ 133 mls/hr IVPB Q12H [facility] Stop: 03/28/17 05:01 Last Admin: 03/25/17 05:00 Dose: 133 mls/hr Insulin Human Isoph/Insulin Regular (Novolin 70/30 (70/30 Units/Ml) 10 Ml) 20 units SC Q12 [facility] Last Admin: 03/24/17 21:48 Dose: 20 units Insulin Human Regular (Novolin R) 0 unit SC ACHS [facility] PRN Reason: Protocol Last Admin: 03/25/17 07:35 Dose: Not Given Ketorolac Tromethamine (Toradol) 15 mg IVP Q6 PRN PRN Reason: Pain, moderate (4-7) Last Admin: 03/25/17 05:25 Dose: 15 mg Levothyroxine Sodium (Synthroid) 25 mcg PO DAILY@0630 [facility] Last Admin: 03/25/17 05:56 Dose: 25 mcg Losartan Potassium (Cozaar) 100 mg PO DAILY [facility] Last Admin: 03/24/17 10:12 Dose: 100 mg Metformin HCl (Glucophage) 500 mg PO BID [facility] Last Admin: 03/24/17 17:45 Dose: 500 mg Pantoprazole Sodium (Protonix Ec Tab) 40 mg PO DAILY [facility] Last Admin: 03/24/17 10:11 Dose: 40 mg Polyethylene Glycol (Miralax) 17 gm PO DAILY [facility] Last Admin: 03/24/17 13:03 Dose: 17 gm Sitagliptin Phosphate (Januvia) 50 mg PO DAILY [facility] Last Admin: 03/24/17 10:12 Dose: 50 mg - Labs Labs: 03/24/17 07:01 03/24/17 07:01 PT 11.9 SECONDS (9.7-12.2) 03/22/17 17:04 INR 1.1 03/22/17 17:04 APTT 25 SECONDS (21-34) 03/22/17 17:04 - Constitutional Appears: Non-toxic, No Acute Distress, Other (morbid obese) - Head Exam Head Exam: NORMAL INSPECTION, NORMOCEPHALIC - Eye Exam Eye Exam: Normal appearance Pupil Exam: NORMAL ACCOMODATION - ENT Exam ENT Exam: Mucous Membranes Moist - Respiratory Exam Respiratory Exam: Clear to Ausculation Bilateral, NORMAL BREATHING PATTERN. absent: Rhonchi, Wheezes - Cardiovascular Exam Cardiovascular Exam: REGULAR RHYTHM, +S1, +S2. absent: Gallop, Rubs - GI/Abdominal Exam GI & Abdominal Exam: Soft, Normal Bowel Sounds. absent: Tenderness - Extremities Exam Extremities Exam: Pedal Edema, Tenderness Additional comments: dress intact, dry and clean - Neurological Exam Neurological Exam: Alert, Awake, Oriented x3 - Psychiatric Exam Psychiatric exam: Normal Mood - Skin Skin Exam: Intact Additional comments: Unable to assess right thigh ulcer due to aloe vera and body habitus Assessment and Plan - Assessment and Plan (Free Text) Assessment: (1) Cellulitis of lower extremity Assessment & Plan: 03/25: Trough 15.7, F/U today labs. Negative culture for x48 hours. Continue current regimen. Wound care on board. 03/24: blood culture negative x24 hours. Toradol started. F/U vanco trough. Vancomycin IVPB 1G Q12h Zosyn 3.375gm Q6h f/u blood culture No leukocytosis CBC daily (HgB 9.3 on 03/23) Monitor daily for fevers venous dopplersL no abnormal findings of examined veins PT Wound care ordered Status: Acute (2) Poorly controlled diabetes mellitus Assessment & Plan: hemoglobin A1C 9.7 Insulin Sliding Scale Accu Checks Metformin 500mg BID Januvia 50mg PO Daily Novolin 70-30 20 units BID Status: Acute (3) Iron deficiency anemia Assessment & Plan: monitor H/H iron 25 TIBC 273 Ferritin 40.6 Ferrlecit 125mg IVPB daily Status: Acute (4) Hypothyroidism Assessment & Plan: Continue home med Synthroid 25mcg PO Daily Status: Acute (5) Hypertension Assessment & Plan: continue home medications: Lasix 20 mg PO daily HCTZ 25mg PO daily Losartan 100 mg PO daily Lasix 20 mg PO daily Status: Acute (6) Stage II ulcer on thigh Assessment & Plan: Wound care consulted. Status: Acute (7) Prophylactic measure Assessment & Plan: Lovenox 40 mg SC daily Protonix 40 mg PO daily [facility] <Braulio Doss - Last Filed: 03/25/17 10:44> Objective - Vital Signs/Intake and Output Vital Signs (last 24 hours): Temp Pulse Resp BP Pulse Ox 98.3 F 73 20 134/65 96 03/24/17 23:31 03/24/17 23:31 03/24/17 23:31 03/24/17 23:31 03/24/17 23:31 Intake and Output: 03/25/17 03/25/17 06:59 18:59 Intake Total 600 Output Total 1 Balance 599 - Medications Medications: Current Medications Acetaminophen (Tylenol 325mg Tab) 650 mg PO Q6 PRN PRN Reason: Pain, Mild (1-3) Last Admin: 03/24/17 17:42 Dose: 650 mg Docusate Sodium (Colace) 100 mg PO BID [facility] Last Admin: 03/24/17 17:45 Dose: 100 mg Enoxaparin Sodium (Lovenox) 40 mg SC DAILY [facility] Last Admin: 03/24/17 10:11 Dose: 40 mg Ferric Sodium Gluconate Complex (Ferrlecit) 125 mg IVPB DAILY [facility] Stop: 03/31/17 17:46 Last Admin: 03/24/17 10:10 Dose: 125 mg Folic Acid (Folic Acid) 1 mg PO DAILY [facility] Last Admin: 03/24/17 10:12 Dose: 1 mg Furosemide (Lasix) 20 mg PO DAILY [facility] Last Admin: 03/24/17 10:11 Dose: 20 mg Hydrochlorothiazide (Hydrodiuril) 25 mg PO DAILY [facility] Last Admin: 03/24/17 10:11 Dose: 25 mg Piperacillin Sod/Tazobactam Sod (Zosyn 3.375 Gm Iv Premix) 3.375 gm in 50 mls @ 100 mls/hr IVPB Q6H [facility] Last Admin: 03/25/17 06:52 Dose: 100 mls/hr Vancomycin/Sodium Chloride (Vancocin) 1 gm in 200 mls @ 133 mls/hr IVPB Q12H [facility] Stop: 03/28/17 05:01 Last Admin: 03/25/17 05:00 Dose: 133 mls/hr Insulin Human Isoph/Insulin Regular (Novolin 70/30 (70/30 Units/Ml) 10 Ml) 20 units SC Q12 [facility] Last Admin: 03/24/17 21:48 Dose: 20 units Insulin Human Regular (Novolin R) 0 unit SC ACHS [facility] PRN Reason: Protocol Last Admin: 03/25/17 07:35 Dose: Not Given Ketorolac Tromethamine (Toradol) 15 mg IVP Q6 PRN PRN Reason: Pain, moderate (4-7) Last Admin: 03/25/17 05:25 Dose: 15 mg Levothyroxine Sodium (Synthroid) 25 mcg PO DAILY@0630 [facility] Last Admin: 03/25/17 05:56 Dose: 25 mcg Losartan Potassium (Cozaar) 100 mg PO DAILY [facility] Last Admin: 03/24/17 10:12 Dose: 100 mg Metformin HCl (Glucophage) 500 mg PO BID [facility] Last Admin: 03/24/17 17:45 Dose: 500 mg Pantoprazole Sodium (Protonix Ec Tab) 40 mg PO DAILY [facility] Last Admin: 03/24/17 10:11 Dose: 40 mg Polyethylene Glycol (Miralax) 17 gm PO DAILY [facility] Last Admin: 03/24/17 13:03 Dose: 17 gm Sitagliptin Phosphate (Januvia) 50 mg PO DAILY [facility] Last Admin: 03/24/17 10:12 Dose: 50 mg - Labs Labs: 03/25/17 08:20 03/25/17 08:20 PT 11.9 SECONDS (9.7-12.2) 03/22/17 17:04 INR 1.1 03/22/17 17:04 APTT 25 SECONDS (21-34) 03/22/17 17:04 Attending/Attestation - Attestation I have personally seen and examined this patient.: Yes I have fully participated in the care of the patient.: Yes I have reviewed all pertinent clinical information, including history, physical exam and plan: Yes Notes (Text): Medical Attending: Patient was seen and examined by me. This is my first time meeting the patient. I reviewed previous notes, discussed with the staff as well Currenlty on IV abx Vancomycin and Zosyn for bilateral cellulitis. Also on exam tried to inspect the sacral wound area however I was not able to turn her completely due to body habitus however I did not visuallize any open skin breaks myself from what I was able to see. Revewed the accuchecks, if the sugars remain elevated will adjust tommorow. thank you Braulio Doss
[2017-03-25 08:41] LABS: BASO % 0.2 % (0.0-2.0); EOS # 0.7 K/uL (0.0-0.7); EOS % 8.1 % (0.0-4.0); HEMATOCRIT 26.4 % (34.0-47.0); LYMPH % 10.8 % (20.0-40.0); MEAN CELL VOLUME 86.2 fL (81.0-99.0); MEAN CORPUSCULAR HEMOGLOBIN 28.2 pg (27.0-31.0); MEAN CORPUSCULAR HGB CONC 32.7 g/dL (33.0-37.0); MEAN PLATELET VOLUME 8.9 fL (7.2-11.7); MONO # 0.9 K/uL (0.0-0.8); MONO % 9.5 % (0.0-10.0); NRBC % 0.1 % (0.0-2.0); RED CELL DISTRIBUTION WIDTH 14.6 % (11.5-14.5); WHITE BLOOD COUNT 9.2 K/uL (4.8-10.8)
[2017-03-25 08:42] LABS: POTASSIUM 3.5 mmol/L (3.6-5.2)
[2017-03-25 08:44] LABS: BILIRUBIN,TOTAL 0.5 mg/dL (0.2-1.3); TOTAL PROTEIN 6.1 g/dL (6.3-8.3)
[2017-03-25 08:45] LABS: CALCIUM 8.4 mg/dl (8.6-10.4); MAGNESIUM 1.9 mg/dL (1.6-2.3); PHOSPHOROUS 4.2 mg/dL (2.5-4.5)
[2017-03-25] MEDS: Ferric Sodium Gluconat Complex 62.5 mg/5 ml Vial IVPB SCH (10:43)
[2017-03-25] MEDS: POLYETHYLENE GLYCOL 3350 17 GM/Dose PACKET PO SCH (10:44)
[2017-03-25] MEDS: Enoxaparin 40 mg Syringe SC SCH (10:45)
[2017-03-25] MEDS: (Novolin 70/30) NPH/Regular 70/30 Units/ml 10 ml vial SC SCH ×2 (10:45→21:55)
[2017-03-25] MEDS: Pantoprazole 40 mg EC Tab PO SCH (10:45)
[2017-03-25] MEDS ORDERED: Potassium Chloride 20 mEq ER Tab PO ONE (16:03)
[2017-03-26] MEDS: Vancomycin 1 gm/NS 200 ml 1 GM/200 ML BAG IVPB SCH ×2 (04:51→18:18)
[2017-03-26] MEDS: Piperacill/Tazo 3.375gm in Dex 3.375 GM/50 ML BAG IVPB SCH ×3 (06:21→18:16)
[2017-03-26] MEDS: Levothyroxine 25 MCG TAB PO SCH (06:21)
[2017-03-26 06:52] LABS: BASO % 0.1 % (0.0-2.0); EOS # 0.8 K/uL (0.0-0.7); EOS % 8.9 % (0.0-4.0); HEMATOCRIT 27.9 % (34.0-47.0); LYMPH # 1.2 K/uL (1.0-4.3); LYMPH % 12.8 % (20.0-40.0); MEAN CELL VOLUME 85.7 fL (81.0-99.0); MEAN CORPUSCULAR HGB CONC 32.7 g/dL (33.0-37.0); MEAN PLATELET VOLUME 8.7 fL (7.2-11.7); MONO # 0.8 K/uL (0.0-0.8); MONO % 9.1 % (0.0-10.0); RED CELL DISTRIBUTION WIDTH 14.7 % (11.5-14.5); WHITE BLOOD COUNT 9.1 K/uL (4.8-10.8)
[2017-03-26 07:04] LABS: CHLORIDE 97 mmol/L (98-107); POTASSIUM 3.9 mmol/L (3.6-5.2); SODIUM 136 mmol/L (132-148)
[2017-03-26 07:06] LABS: BILIRUBIN,TOTAL 0.4 mg/dL (0.2-1.3); CARBON DIOXIDE 30 mmol/L (22-30); GFR AFRICAN-AMERICAN > 60
[2017-03-26 07:07] LABS: ALB/GLOB RATIO 0.9 (1.0-2.1); ALKALINE PHOSPHATASE 133 U/L (38-126); ALT/SGPT 35 U/L (9-52); AST/SGOT 34 U/L (14-36); BLOOD UREA NITROGEN 17 mg/dL (7-17); CALCIUM 8.7 mg/dl (8.6-10.4); GLUCOSE,RANDOM 101 mg/dL (65-105); MAGNESIUM 1.8 mg/dL (1.6-2.3); PHOSPHOROUS 3.8 mg/dL (2.5-4.5); TOTAL PROTEIN 6.7 g/dL (6.3-8.3)
[2017-03-26] MEDS: (Novolin R) Insulin Human Regular 100 units/ml vial SC SCH ×4 (08:18→22:33)
[2017-03-26] MEDS: POLYETHYLENE GLYCOL 3350 17 GM/Dose PACKET PO SCH (10:58)
[2017-03-26] MEDS: (Novolin 70/30) NPH/Regular 70/30 Units/ml 10 ml vial SC SCH ×2 (10:58→22:37)
[2017-03-26] MEDS: Pantoprazole 40 mg EC Tab PO SCH (10:58)
[2017-03-26] MEDS: Enoxaparin 40 mg Syringe SC SCH (10:58)
[2017-03-26] MEDS: Ferric Sodium Gluconat Complex 62.5 mg/5 ml Vial IVPB SCH (10:58)
--- NOTE | 2017-03-26 19:01 | CP.PCM.PN ---
<Sandhya Pendleton - Last Filed: 03/26/17 18:58> Subjective - Date & Time of Evaluation Date of Evaluation: 03/26/17 Time of Evaluation: 07:00 - Subjective Subjective: PGY1 Medicine Note- Dr. Doss's service Patient seen and examined at bedside in no acute distress. Patient denies shortness of breath, chest pain, abdominal pain, nausea, vomiting, constipation , or diarrhea. Patient's legs causing her minimal pain. Patient's dressings changed today. Objective - Vital Signs/Intake and Output Vital Signs (last 24 hours): Temp Pulse Resp BP Pulse Ox 98.2 F 71 20 149/76 96 03/26/17 07:22 03/26/17 10:57 03/26/17 07:22 03/26/17 10:58 03/26/17 07:22 Intake and Output: 03/26/17 03/26/17 06:59 18:59 Intake Total 300 390 Balance 300 390 - Medications Medications: Current Medications Acetaminophen (Tylenol 325mg Tab) 650 mg PO Q6 PRN PRN Reason: Pain, Mild (1-3) Last Admin: 03/24/17 17:42 Dose: 650 mg Docusate Sodium (Colace) 100 mg PO BID [facility] Last Admin: 03/26/17 18:13 Dose: 100 mg Enoxaparin Sodium (Lovenox) 40 mg SC DAILY [facility] Last Admin: 03/26/17 10:58 Dose: 40 mg Ferric Sodium Gluconate Complex (Ferrlecit) 125 mg IVPB DAILY [facility] Stop: 03/31/17 17:46 Last Admin: 03/26/17 10:58 Dose: 125 mg Folic Acid (Folic Acid) 1 mg PO DAILY [facility] Last Admin: 03/26/17 10:58 Dose: 1 mg Furosemide (Lasix) 20 mg PO DAILY [facility] Last Admin: 03/26/17 10:58 Dose: 20 mg Hydrochlorothiazide (Hydrodiuril) 25 mg PO DAILY [facility] Last Admin: 03/26/17 10:58 Dose: 25 mg Piperacillin Sod/Tazobactam Sod (Zosyn 3.375 Gm Iv Premix) 3.375 gm in 50 mls @ 100 mls/hr IVPB Q6H [facility] Last Admin: 03/26/17 18:16 Dose: 100 mls/hr Vancomycin/Sodium Chloride (Vancocin) 1 gm in 200 mls @ 133 mls/hr IVPB Q12H [facility] Stop: 03/28/17 05:01 Last Admin: 03/26/17 18:18 Dose: 133 mls/hr Insulin Human Isoph/Insulin Regular (Novolin 70/30 (70/30 Units/Ml) 10 Ml) 20 units SC Q12 [facility] Last Admin: 03/26/17 10:58 Dose: 20 units Insulin Human Regular (Novolin R) 0 unit SC ACHS [facility] PRN Reason: Protocol Last Admin: 03/26/17 18:13 Dose: 2 unit Levothyroxine Sodium (Synthroid) 25 mcg PO DAILY@0630 [facility] Last Admin: 03/26/17 06:21 Dose: 25 mcg Losartan Potassium (Cozaar) 100 mg PO DAILY [facility] Last Admin: 03/26/17 10:58 Dose: 100 mg Metformin HCl (Glucophage) 500 mg PO BID [facility] Last Admin: 03/26/17 18:13 Dose: 500 mg Pantoprazole Sodium (Protonix Ec Tab) 40 mg PO DAILY [facility] Last Admin: 03/26/17 10:58 Dose: 40 mg Polyethylene Glycol (Miralax) 17 gm PO DAILY [facility] Last Admin: 03/26/17 10:58 Dose: 17 gm Sitagliptin Phosphate (Januvia) 50 mg PO DAILY [facility] Last Admin: 03/26/17 10:58 Dose: 50 mg - Labs Labs: 03/26/17 06:35 03/26/17 06:35 PT 11.9 SECONDS (9.7-12.2) 03/22/17 17:04 INR 1.1 03/22/17 17:04 APTT 25 SECONDS (21-34) 03/22/17 17:04 - Constitutional Appears: Well, Non-toxic, No Acute Distress - Head Exam Head Exam: ATRAUMATIC, NORMAL INSPECTION, NORMOCEPHALIC - Eye Exam Eye Exam: EOMI, Normal appearance, PERRL - ENT Exam ENT Exam: Mucous Membranes Moist, Normal Exam - Neck Exam Neck Exam: Full ROM, Normal Inspection. absent: Lymphadenopathy - Respiratory Exam Respiratory Exam: Clear to Ausculation Bilateral, NORMAL BREATHING PATTERN. absent: Rales, Rhonchi, Wheezes - Cardiovascular Exam Cardiovascular Exam: REGULAR RHYTHM, RRR, +S1, +S2. absent: Gallop, Rubs, Murmur - GI/Abdominal Exam GI & Abdominal Exam: Soft, Normal Bowel Sounds. absent: Firm, Guarding, Tenderness - Extremities Exam Extremities Exam: Pedal Edema, Tenderness. absent: Normal Inspection Additional comments: ulcerations on legs bilaterally. erythem and edema. right leg has some bleeding ulcers- stage 2 - Neurological Exam Neurological Exam: Alert, Awake, Oriented x3 - Psychiatric Exam Psychiatric exam: Normal Affect, Normal Mood - Skin Skin Exam: Erythema, Warm Additional comments: oozing ulcerations on legs bilaterally Assessment and Plan - Assessment and Plan (Free Text) Assessment: (1) Cellulitis of lower extremity Assessment & Plan: 03/26: nursing communication placed for daily dressing changes 03/25: Trough 15.7, Negative culture for x48 hours. Continue current regimen. Wound care on board. Vancomycin IVPB 1G Q12h Zosyn 3.375gm Q6h f/u blood culture No leukocytosis CBC daily (HgB 9.3 on 03/23) Monitor daily for fevers venous dopplers: no abnormal findings of examined veins PT Wound care ordered Status: Acute (2) Poorly controlled diabetes mellitus Assessment & Plan: hemoglobin A1C 9.7 Insulin Sliding Scale Accu Checks Metformin 500mg BID Januvia 50mg PO Daily Novolin 70-30 20 units BID Status: Acute (3) Iron deficiency anemia Assessment & Plan: monitor H/H iron 25 TIBC 273 Ferritin 40.6 Ferrlecit 125mg IVPB daily Status: Acute (4) Hypothyroidism Assessment & Plan: Continue home med Synthroid 25mcg PO Daily Status: Acute (5) Hypertension Assessment & Plan: continue home medications: Lasix 20 mg PO daily HCTZ 25mg PO daily Losartan 100 mg PO daily Lasix 20 mg PO daily Status: Acute (6) Stage II ulcer on thigh Assessment & Plan: Wound care Nursing to change dressings daily. Dressing changes today (03/26) Status: Acute (7) Prophylactic measure Assessment & Plan: Lovenox 40 mg SC daily Protonix 40 mg PO daily Rosie <Braulio Doss H - Last Filed: 03/27/17 09:25> Objective - Vital Signs/Intake and Output Vital Signs (last 24 hours): Temp Pulse Resp BP Pulse Ox 98 F 66 19 186/67 H 96 03/27/17 08:03 03/27/17 08:03 03/27/17 08:03 03/27/17 08:03 03/27/17 08:03 Intake and Output: 03/27/17 03/27/17 06:59 18:59 Intake Total 250 Balance 250 - Medications Medications: Current Medications Acetaminophen (Tylenol 325mg Tab) 650 mg PO Q6 PRN PRN Reason: Pain, Mild (1-3) Last Admin: 03/26/17 20:21 Dose: 650 mg Docusate Sodium (Colace) 100 mg PO BID [facility] Last Admin: 03/26/17 18:13 Dose: 100 mg Enoxaparin Sodium (Lovenox) 40 mg SC DAILY [facility] Last Admin: 03/26/17 10:58 Dose: 40 mg Ferric Sodium Gluconate Complex (Ferrlecit) 125 mg IVPB DAILY [facility] Stop: 03/31/17 17:46 Last Admin: 03/26/17 10:58 Dose: 125 mg Folic Acid (Folic Acid) 1 mg PO DAILY [facility] Last Admin: 03/26/17 10:58 Dose: 1 mg Furosemide (Lasix) 20 mg PO DAILY [facility] Last Admin: 03/26/17 10:58 Dose: 20 mg Hydrochlorothiazide (Hydrodiuril) 25 mg PO DAILY [facility] Last Admin: 03/26/17 10:58 Dose: 25 mg Piperacillin Sod/Tazobactam Sod (Zosyn 3.375 Gm Iv Premix) 3.375 gm in 50 mls @ 100 mls/hr IVPB Q6H [facility] Last Admin: 03/27/17 06:00 Dose: 100 mls/hr Vancomycin/Sodium Chloride (Vancocin) 1 gm in 200 mls @ 133 mls/hr IVPB Q12H [facility] Stop: 03/28/17 05:01 Last Admin: 03/27/17 05:59 Dose: 133 mls/hr Insulin Human Isoph/Insulin Regular (Novolin 70/30 (70/30 Units/Ml) 10 Ml) 20 units SC Q12 [facility] Last Admin: 03/26/17 22:37 Dose: 20 units Insulin Human Regular (Novolin R) 0 unit SC ACHS [facility] PRN Reason: Protocol Last Admin: 03/27/17 07:39 Dose: Not Given Ketorolac Tromethamine (Toradol) 15 mg IVP Q6 PRN PRN Reason: Pain, severe (8-10) Last Admin: 03/26/17 21:00 Dose: 15 mg Levothyroxine Sodium (Synthroid) 25 mcg PO DAILY@0630 [facility] Last Admin: 03/27/17 06:00 Dose: 25 mcg Losartan Potassium (Cozaar) 100 mg PO DAILY [facility] Last Admin: 03/26/17 10:58 Dose: 100 mg Metformin HCl (Glucophage) 500 mg PO BID [facility] Last Admin: 03/26/17 18:13 Dose: 500 mg Pantoprazole Sodium (Protonix Ec Tab) 40 mg PO DAILY [facility] Last Admin: 03/26/17 10:58 Dose: 40 mg Polyethylene Glycol (Miralax) 17 gm PO DAILY [facility] Last Admin: 03/26/17 10:58 Dose: 17 gm Sitagliptin Phosphate (Januvia) 50 mg PO DAILY [facility] Last Admin: 03/26/17 10:58 Dose: 50 mg Zolpidem Tartrate (Ambien) 5 mg PO HS PRN PRN Reason: Insomnia Last Admin: 03/26/17 22:35 Dose: 5 mg - Labs Labs: 03/27/17 07:31 03/27/17 07:31 PT 11.9 SECONDS (9.7-12.2) 03/22/17 17:04 INR 1.1 03/22/17 17:04 APTT 25 SECONDS (21-34) 03/22/17 17:04 Attending/Attestation - Attestation I have personally seen and examined this patient.: Yes I have fully participated in the care of the patient.: Yes I have reviewed all pertinent clinical information, including history, physical exam and plan: Yes Notes (Text): 03/27/17 09:24 Medical attending: Patient was seen and examined by me, agrees the above note by medical records technician. The patient was not under any acute distress when we saw her. We change the wound dressing bilaterally. Clean the area off with normal saline , she does have some bleeding over the right anterior tibial area. It's a very small area the bleeding was bright red blood with very small minimal amounts of bleeding. This area was cleaned off with normal saline medical he was supplied. We also applied a new 4 x 4 gauze and also Kerlix wrap around that area of the anterior tibial and around the calf. We also cleaned the left leg as well. The left leg did not have any open wounds. Nevertheless we did wash it with normal saline applied Medical he 4 x 4 gauze and also Kerlix wrap. In the meantime we'll continue with IV any biotics. It is possible that the patient could go to rehabilitation for potential rehabilitation and additional IV any biotics Thank you very much, Braulio Doss
[2017-03-27] MEDS: Piperacill/Tazo 3.375gm in Dex 3.375 GM/50 ML BAG IVPB SCH ×3 (00:26→12:54)
[2017-03-27] MEDS: Vancomycin 1 gm/NS 200 ml 1 GM/200 ML BAG IVPB SCH ×2 (05:59→17:10)
[2017-03-27] MEDS: Levothyroxine 25 MCG TAB PO SCH (06:00)
--- NOTE | 2017-03-27 06:19 | CP.PCM.PN ---
<Sandhya Pendleton - Last Filed: 03/27/17 21:19> Subjective - Date & Time of Evaluation Date of Evaluation: 03/27/17 Time of Evaluation: 07:30 - Subjective Subjective: PGY1- Medicine note-Dr. Doss's Service Patient seen and examined at bedside and in no acute distress. Patient says she is feeling okay today. Patient denies shortness of breath, chest pain, abdominal pain, nausea, vomiting, constipation, diarrhea. Patient has an appetite and say she is eating well. Patient says her legs only hurt her a little. Patient was to go to subacute rehab today, but still waiting on authorization. Objective - Vital Signs/Intake and Output Vital Signs (last 24 hours): Temp Pulse Resp BP Pulse Ox 98.1 F 74 19 151/71 H 95 03/26/17 23:09 03/26/17 23:09 03/26/17 23:09 03/26/17 23:09 03/26/17 23:09 Intake and Output: 03/26/17 03/27/17 18:59 06:59 Intake Total 390 250 Balance 390 250 - Medications Medications: Current Medications Acetaminophen (Tylenol 325mg Tab) 650 mg PO Q6 PRN PRN Reason: Pain, Mild (1-3) Last Admin: 03/26/17 20:21 Dose: 650 mg Docusate Sodium (Colace) 100 mg PO BID [facility] Last Admin: 03/26/17 18:13 Dose: 100 mg Enoxaparin Sodium (Lovenox) 40 mg SC DAILY [facility] Last Admin: 03/26/17 10:58 Dose: 40 mg Ferric Sodium Gluconate Complex (Ferrlecit) 125 mg IVPB DAILY [facility] Stop: 03/31/17 17:46 Last Admin: 03/26/17 10:58 Dose: 125 mg Folic Acid (Folic Acid) 1 mg PO DAILY [facility] Last Admin: 03/26/17 10:58 Dose: 1 mg Furosemide (Lasix) 20 mg PO DAILY [facility] Last Admin: 03/26/17 10:58 Dose: 20 mg Hydrochlorothiazide (Hydrodiuril) 25 mg PO DAILY [facility] Last Admin: 03/26/17 10:58 Dose: 25 mg Piperacillin Sod/Tazobactam Sod (Zosyn 3.375 Gm Iv Premix) 3.375 gm in 50 mls @ 100 mls/hr IVPB Q6H [facility] Last Admin: 03/27/17 06:00 Dose: 100 mls/hr Vancomycin/Sodium Chloride (Vancocin) 1 gm in 200 mls @ 133 mls/hr IVPB Q12H [facility] Stop: 03/28/17 05:01 Last Admin: 03/27/17 05:59 Dose: 133 mls/hr Insulin Human Isoph/Insulin Regular (Novolin 70/30 (70/30 Units/Ml) 10 Ml) 20 units SC Q12 [facility] Last Admin: 03/26/17 22:37 Dose: 20 units Insulin Human Regular (Novolin R) 0 unit SC ACHS [facility] PRN Reason: Protocol Last Admin: 03/26/17 22:33 Dose: Not Given Ketorolac Tromethamine (Toradol) 15 mg IVP Q6 PRN PRN Reason: Pain, severe (8-10) Last Admin: 03/26/17 21:00 Dose: 15 mg Levothyroxine Sodium (Synthroid) 25 mcg PO DAILY@0630 [facility] Last Admin: 03/27/17 06:00 Dose: 25 mcg Losartan Potassium (Cozaar) 100 mg PO DAILY [facility] Last Admin: 03/26/17 10:58 Dose: 100 mg Metformin HCl (Glucophage) 500 mg PO BID [facility] Last Admin: 03/26/17 18:13 Dose: 500 mg Pantoprazole Sodium (Protonix Ec Tab) 40 mg PO DAILY [facility] Last Admin: 03/26/17 10:58 Dose: 40 mg Polyethylene Glycol (Miralax) 17 gm PO DAILY [facility] Last Admin: 03/26/17 10:58 Dose: 17 gm Sitagliptin Phosphate (Januvia) 50 mg PO DAILY [facility] Last Admin: 03/26/17 10:58 Dose: 50 mg Zolpidem Tartrate (Ambien) 5 mg PO HS PRN PRN Reason: Insomnia Last Admin: 03/26/17 22:35 Dose: 5 mg - Labs Labs: 03/26/17 06:35 03/26/17 06:35 PT 11.9 SECONDS (9.7-12.2) 03/22/17 17:04 INR 1.1 03/22/17 17:04 APTT 25 SECONDS (21-34) 03/22/17 17:04 - Constitutional Appears: Well, Non-toxic, No Acute Distress - Head Exam Head Exam: ATRAUMATIC, NORMAL INSPECTION, NORMOCEPHALIC - Eye Exam Eye Exam: EOMI, Normal appearance, PERRL - ENT Exam ENT Exam: Mucous Membranes Moist, Normal Exam - Neck Exam Neck Exam: Full ROM, Normal Inspection. absent: Lymphadenopathy - Respiratory Exam Respiratory Exam: Clear to Ausculation Bilateral, NORMAL BREATHING PATTERN. absent: Rales, Rhonchi, Wheezes, Respiratory Distress, Stridor - Cardiovascular Exam Cardiovascular Exam: REGULAR RHYTHM, RRR, +S1, +S2. absent: Gallop, Rubs, Murmur - GI/Abdominal Exam GI & Abdominal Exam: Soft, Normal Bowel Sounds. absent: Distended, Firm, Guarding, Rigid, Tenderness - Extremities Exam Extremities Exam: absent: Normal Inspection Additional comments: ulcerations on legs bilaterally. erythema and edema. right leg stage 2 ulcer on thigh - Back Exam Back Exam: NORMAL INSPECTION. absent: rash noted - Neurological Exam Neurological Exam: Alert, Awake, Oriented x3 - Psychiatric Exam Psychiatric exam: Normal Affect, Normal Mood - Skin Skin Exam: Erythema, Warm Additional comments: leg ulcerations bilaterally Assessment and Plan - Assessment and Plan (Free Text) Assessment: (1) Cellulitis of lower extremity Assessment & Plan: 03/26: nursing communication placed for daily dressing changes 03/25: Trough 15.7, Negative culture for x48 hours. Continue current regimen. Wound care on board. Vancomycin IVPB 1G Q12h Zosyn 3.375gm Q6h f/u blood culture No leukocytosis CBC daily (HgB 9.3 on 03/23) Monitor daily for fevers venous dopplers: no abnormal findings of examined veins PT Wound care ordered Status: Acute (2) Poorly controlled diabetes mellitus Assessment & Plan: hemoglobin A1C 9.7 Insulin Sliding Scale Accu Checks Metformin 500mg BID Januvia 50mg PO Daily Novolin 70-30 20 units BID Status: Acute (3) Iron deficiency anemia Assessment & Plan: monitor H/H iron 25 TIBC 273 Ferritin 40.6 Ferrlecit 125mg IVPB daily Status: Acute (4) Hypothyroidism Assessment & Plan: Continue home med Synthroid 25mcg PO Daily Status: Acute (5) Hypertension Assessment & Plan: Continue home medications: Lasix 20 mg PO daily HCTZ 25mg PO daily Losartan 100 mg PO daily Lasix 20 mg PO daily Status: Acute (6) Stage II ulcer on thigh Assessment & Plan: Patient admitted to hospital with stage 2 pressure ulcer on 03/23 Wound care consulted, help appreciated Nursing to change dressings daily. Dressing changed today (03/27) Status: Acute (7) Morbid Obesity Assessment & Plan: BMI: 54.9 dietitian consulted, help appreciated Status: Acute (8) Prophylactic measure Assessment & Plan: Lovenox 40 mg SC daily Protonix 40 mg PO daily [facility] <Braulio Doss H - Last Filed: 03/28/17 07:29> Objective - Vital Signs/Intake and Output Vital Signs (last 24 hours): Temp Pulse Resp BP Pulse Ox 98.8 F 73 20 138/71 97 03/27/17 23:05 03/27/17 23:05 03/27/17 23:05 03/27/17 23:05 03/27/17 23:05 - Medications Medications: Current Medications Acetaminophen (Tylenol 325mg Tab) 650 mg PO Q6 PRN PRN Reason: Pain, Mild (1-3) Last Admin: 03/26/17 20:21 Dose: 650 mg Docusate Sodium (Colace) 100 mg PO BID [facility] Last Admin: 03/27/17 18:03 Dose: 100 mg Enoxaparin Sodium (Lovenox) 40 mg SC DAILY [facility] Last Admin: 03/27/17 09:24 Dose: 40 mg Ferric Sodium Gluconate Complex (Ferrlecit) 125 mg IVPB DAILY [facility] Stop: 03/31/17 17:46 Last Admin: 03/27/17 09:25 Dose: 125 mg Folic Acid (Folic Acid) 1 mg PO DAILY [facility] Last Admin: 03/27/17 09:24 Dose: 1 mg Furosemide (Lasix) 20 mg PO DAILY [facility] Last Admin: 03/27/17 09:23 Dose: 20 mg Hydrochlorothiazide (Hydrodiuril) 25 mg PO DAILY [facility] Last Admin: 03/27/17 09:22 Dose: 25 mg Insulin Human Isoph/Insulin Regular (Novolin 70/30 (70/30 Units/Ml) 10 Ml) 20 units SC Q12 [facility] Last Admin: 03/27/17 22:05 Dose: 20 units Insulin Human Regular (Novolin R) 0 unit SC ACHS [facility] PRN Reason: Protocol Last Admin: 03/27/17 22:01 Dose: Not Given Ketorolac Tromethamine (Toradol) 15 mg IVP Q6 PRN PRN Reason: Pain, severe (8-10) Last Admin: 03/26/17 21:00 Dose: 15 mg Lactic Acid (Lac-Hydrin 12% Lotion (225 G)) 0 gm EXT DAILY [facility] Last Admin: 03/27/17 12:55 Dose: 1 applic Levothyroxine Sodium (Synthroid) 25 mcg PO DAILY@0630 [facility] Last Admin: 03/28/17 05:31 Dose: 25 mcg Losartan Potassium (Cozaar) 100 mg PO DAILY [facility] Last Admin: 03/27/17 09:22 Dose: 100 mg Metformin HCl (Glucophage) 500 mg PO BID [facility] Last Admin: 03/27/17 18:03 Dose: 500 mg Pantoprazole Sodium (Protonix Ec Tab) 40 mg PO DAILY [facility] Last Admin: 03/27/17 09:22 Dose: 40 mg Polyethylene Glycol (Miralax) 17 gm PO DAILY [facility] Last Admin: 03/27/17 09:23 Dose: 17 gm Sitagliptin Phosphate (Januvia) 50 mg PO DAILY [facility] Last Admin: 03/27/17 09:24 Dose: 50 mg Zolpidem Tartrate (Ambien) 5 mg PO HS PRN PRN Reason: Insomnia Last Admin: 03/27/17 22:31 Dose: 5 mg - Labs Labs: 03/28/17 06:07 03/28/17 06:07 PT 11.9 SECONDS (9.7-12.2) 03/22/17 17:04 INR 1.1 03/22/17 17:04 APTT 25 SECONDS (21-34) 03/22/17 17:04
[2017-03-27] MEDS: (Novolin R) Insulin Human Regular 100 units/ml vial SC SCH ×4 (07:39→22:01)
[2017-03-27 07:43] LABS: BASO % 0.2 % (0.0-2.0); EOS # 0.7 K/uL (0.0-0.7); EOS % 9.5 % (0.0-4.0); HEMATOCRIT 28.1 % (34.0-47.0); LYMPH % 12.9 % (20.0-40.0); MEAN CELL VOLUME 86.1 fL (81.0-99.0); MEAN CORPUSCULAR HGB CONC 32.5 g/dL (33.0-37.0); MEAN PLATELET VOLUME 8.3 fL (7.2-11.7); MONO # 0.8 K/uL (0.0-0.8); MONO % 10.8 % (0.0-10.0); NRBC % 0.1 % (0.0-2.0); RED CELL DISTRIBUTION WIDTH 14.9 % (11.5-14.5); WHITE BLOOD COUNT 7.6 K/uL (4.8-10.8)
[2017-03-27 07:57] LABS: POTASSIUM 3.7 mmol/L (3.6-5.2)
[2017-03-27 07:59] LABS: ALB/GLOB RATIO 0.9 (1.0-2.1); BILIRUBIN,TOTAL 0.5 mg/dL (0.2-1.3); TOTAL PROTEIN 6.3 g/dL (6.3-8.3)
[2017-03-27 08:00] LABS: CALCIUM 8.9 mg/dl (8.6-10.4); PHOSPHOROUS 4.2 mg/dL (2.5-4.5)
[2017-03-27] MEDS: Pantoprazole 40 mg EC Tab PO SCH (09:22)
[2017-03-27] MEDS: POLYETHYLENE GLYCOL 3350 17 GM/Dose PACKET PO SCH (09:23)
[2017-03-27] MEDS: (Novolin 70/30) NPH/Regular 70/30 Units/ml 10 ml vial SC SCH ×2 (09:23→22:05)
[2017-03-27] MEDS: Enoxaparin 40 mg Syringe SC SCH (09:24)
[2017-03-27] MEDS: Ferric Sodium Gluconat Complex 62.5 mg/5 ml Vial IVPB SCH (09:25)
[2017-03-27] MEDS: Ammonium Lactate 12% Lotion (225 g) EXT SCH (12:55)
[2017-03-28] MEDS: Vancomycin 1 gm/NS 200 ml 1 GM/200 ML BAG IVPB SCH (05:28)
[2017-03-28] MEDS: Levothyroxine 25 MCG TAB PO SCH (05:31)
[2017-03-28 06:12] LABS: BASO % 0.2 % (0.0-2.0); EOS # 0.6 K/uL (0.0-0.7); EOS % 7.5 % (0.0-4.0); HEMATOCRIT 29.6 % (34.0-47.0); LYMPH % 12.6 % (20.0-40.0); MEAN CELL VOLUME 86.2 fL (81.0-99.0); MEAN CORPUSCULAR HEMOGLOBIN 28.5 pg (27.0-31.0); MEAN CORPUSCULAR HGB CONC 33.1 g/dL (33.0-37.0); MONO # 0.9 K/uL (0.0-0.8); MONO % 10.6 % (0.0-10.0); RED CELL DISTRIBUTION WIDTH 14.7 % (11.5-14.5); WHITE BLOOD COUNT 8.1 K/uL (4.8-10.8)
[2017-03-28 06:38] LABS: CHLORIDE 96 mmol/L (98-107); POTASSIUM 3.7 mmol/L (3.6-5.2); SODIUM 134 mmol/L (132-148)
[2017-03-28 06:40] LABS: GFR AFRICAN-AMERICAN > 60
[2017-03-28 06:41] LABS: ALKALINE PHOSPHATASE 131 U/L (38-126); ALT/SGPT 33 U/L (9-52); AST/SGOT 26 U/L (14-36); BILIRUBIN,TOTAL 0.5 mg/dL (0.2-1.3); BLOOD UREA NITROGEN 14 mg/dL (7-17); CARBON DIOXIDE 30 mmol/L (22-30); GLUCOSE,RANDOM 135 mg/dL (65-105); TOTAL PROTEIN 6.7 g/dL (6.3-8.3)
[2017-03-28 06:42] LABS: CALCIUM 8.8 mg/dl (8.6-10.4)
[2017-03-28] MEDS: (Novolin R) Insulin Human Regular 100 units/ml vial SC SCH ×4 (08:57→21:54)
[2017-03-28] MEDS: Enoxaparin 40 mg Syringe SC SCH (10:07)
[2017-03-28] MEDS: (Novolin 70/30) NPH/Regular 70/30 Units/ml 10 ml vial SC SCH ×2 (10:08→21:57)
[2017-03-28] MEDS: Pantoprazole 40 mg EC Tab PO SCH (10:09)
[2017-03-28] MEDS: Ferric Sodium Gluconat Complex 62.5 mg/5 ml Vial IVPB SCH (10:10)
[2017-03-28] MEDS: POLYETHYLENE GLYCOL 3350 17 GM/Dose PACKET PO SCH (10:11)
[2017-03-28] MEDS: Ammonium Lactate 12% Lotion (225 g) EXT SCH (10:12)
--- NOTE | 2017-03-28 17:28 | CP.PCM.PN ---
<Sandhya Pendleton - Last Filed: 03/28/17 17:25> Subjective - Date & Time of Evaluation Date of Evaluation: 03/28/17 Time of Evaluation: 07:45 - Subjective Subjective: PGY1- Medicine note-Dr. Doss's Service Patient seen and examined at bedside and in no acute distress. Patient says she is feeling okay today. Patient denies shortness of breath, chest pain, abdominal pain, nausea, vomiting, constipation, diarrhea. Patient has an appetite and say she is eating well. Patient says her legs only hurt her a little. Patient was to go to subacute rehab today, but still waiting on authorization. Objective - Vital Signs/Intake and Output Vital Signs (last 24 hours): Temp Pulse Resp BP Pulse Ox 98.4 F 79 20 165/74 H 95 03/28/17 15:46 03/28/17 15:46 03/28/17 15:46 03/28/17 15:46 03/28/17 15:46 Intake and Output: 03/28/17 03/28/17 06:59 18:59 Intake Total 510 Output Total 1 Balance 509 - Medications Medications: Current Medications Acetaminophen (Tylenol 325mg Tab) 650 mg PO Q6 PRN PRN Reason: Pain, Mild (1-3) Last Admin: 03/26/17 20:21 Dose: 650 mg Docusate Sodium (Colace) 100 mg PO BID [facility] Last Admin: 03/28/17 10:10 Dose: 100 mg Enoxaparin Sodium (Lovenox) 40 mg SC DAILY [facility] Last Admin: 03/28/17 10:07 Dose: 40 mg Ferric Sodium Gluconate Complex (Ferrlecit) 125 mg IVPB DAILY [facility] Stop: 03/31/17 17:46 Last Admin: 03/28/17 10:10 Dose: 125 mg Folic Acid (Folic Acid) 1 mg PO DAILY [facility] Last Admin: 03/28/17 10:15 Dose: 1 mg Furosemide (Lasix) 20 mg PO DAILY [facility] Last Admin: 03/28/17 10:15 Dose: 20 mg Hydrochlorothiazide (Hydrodiuril) 25 mg PO DAILY [facility] Last Admin: 03/28/17 10:11 Dose: 25 mg Insulin Human Isoph/Insulin Regular (Novolin 70/30 (70/30 Units/Ml) 10 Ml) 20 units SC Q12 [facility] Last Admin: 03/28/17 10:08 Dose: 20 units Insulin Human Regular (Novolin R) 0 unit SC ACHS [facility]ACK[facility] PRN Reason: Protocol Last Admin: 03/28/17 16:44 Dose: Not Given Ketorolac Tromethamine (Toradol) 15 mg IVP Q6 PRN PRN Reason: Pain, severe (8-10) Last Admin: 03/26/17 21:00 Dose: 15 mg Lactic Acid (Lac-Hydrin 12% Lotion (225 G)) 0 gm EXT DAILY [facility] Last Admin: 03/28/17 10:12 Dose: 1 applic Levothyroxine Sodium (Synthroid) 25 mcg PO DAILY@0630 [facility] Last Admin: 03/28/17 05:31 Dose: 25 mcg Losartan Potassium (Cozaar) 100 mg PO DAILY [facility] Last Admin: 03/28/17 10:11 Dose: 100 mg Metformin HCl (Glucophage) 500 mg PO BID [facility] Last Admin: 03/28/17 10:09 Dose: 500 mg Pantoprazole Sodium (Protonix Ec Tab) 40 mg PO DAILY [facility] Last Admin: 03/28/17 10:09 Dose: 40 mg Polyethylene Glycol (Miralax) 17 gm PO DAILY [facility] Last Admin: 03/28/17 10:11 Dose: 17 gm Sitagliptin Phosphate (Januvia) 50 mg PO DAILY [facility] Last Admin: 03/28/17 10:09 Dose: 50 mg Zolpidem Tartrate (Ambien) 5 mg PO HS PRN PRN Reason: Insomnia Last Admin: 03/27/17 22:31 Dose: 5 mg - Labs Labs: 03/28/17 06:07 03/28/17 06:07 PT 11.9 SECONDS (9.7-12.2) 03/22/17 17:04 INR 1.1 03/22/17 17:04 APTT 25 SECONDS (21-34) 03/22/17 17:04 - Constitutional Appears: Well, Non-toxic, No Acute Distress - Head Exam Head Exam: ATRAUMATIC, NORMAL INSPECTION, NORMOCEPHALIC - Eye Exam Eye Exam: EOMI, Normal appearance, PERRL - ENT Exam ENT Exam: Mucous Membranes Moist, Normal Exam - Neck Exam Neck Exam: Full ROM, Normal Inspection. absent: Lymphadenopathy, Tenderness - Respiratory Exam Respiratory Exam: Clear to Ausculation Bilateral, NORMAL BREATHING PATTERN. absent: Rales, Rhonchi, Wheezes, Respiratory Distress, Stridor - Cardiovascular Exam Cardiovascular Exam: REGULAR RHYTHM, RRR, +S1, +S2. absent: Gallop, Rubs, Murmur - GI/Abdominal Exam GI & Abdominal Exam: Firm, Guarding, Rigid, Soft, Normal Bowel Sounds. absent: Tenderness - Extremities Exam Extremities Exam: Full ROM, Pedal Edema, Tenderness Additional comments: ulcerations bilaterally on lower legs, dressings clean, dry, intact - Neurological Exam Neurological Exam: Alert, Awake, Oriented x3 - Psychiatric Exam Psychiatric exam: Normal Affect, Normal Mood - Skin Skin Exam: Warm. absent: Intact, Normal Color Additional comments: ulcerations on b/l lower legs and stage to ulcer on inner thigh Assessment and Plan - Assessment and Plan (Free Text) Assessment: (1) Cellulitis of lower extremity Assessment & Plan: 03/26: nursing communication placed for daily dressing changes 03/25: Trough 15.7, Negative culture for x48 hours. Continue current regimen. Wound care on board. Vancomycin IVPB 1G Q12h Zosyn 3.375gm Q6h f/u blood culture No leukocytosis CBC daily (HgB 9.3 on 03/23) Monitor daily for fevers venous dopplers: no abnormal findings of examined veins PT Wound care ordered Status: Acute (2) Poorly controlled diabetes mellitus Assessment & Plan: hemoglobin A1C 9.7 Insulin Sliding Scale Accu Checks Metformin 500mg BID Januvia 50mg PO Daily Novolin 70-30 20 units BID Status: Acute (3) Iron deficiency anemia Assessment & Plan: monitor H/H iron 25 TIBC 273 Ferritin 40.6 Ferrlecit 125mg IVPB daily Status: Acute (4) Hypothyroidism Assessment & Plan: Continue home med Synthroid 25mcg PO Daily Status: Acute (5) Hypertension Assessment & Plan: Continue home medications: Lasix 20 mg PO daily HCTZ 25mg PO daily Losartan 100 mg PO daily Lasix 20 mg PO daily Status: Acute (6) Stage II ulcer on thigh Assessment & Plan: Patient admitted to hospital with stage 2 pressure ulcer on 03/23 Wound care consulted, help appreciated Nursing to change dressings daily. Dressing changed today (03/27) Status: Acute (7) Morbid Obesity Assessment & Plan: BMI: 54.9 dietitian consulted, help appreciated Status: Acute (8) Prophylactic measure Assessment & Plan: Lovenox 40 mg SC daily Protonix 40 mg PO daily [facility] <SelamBraulio H - Last Filed: 03/28/17 18:06> Objective - Vital Signs/Intake and Output Vital Signs (last 24 hours): Temp Pulse Resp BP Pulse Ox 98.4 F 79 20 165/74 H 95 03/28/17 15:46 03/28/17 15:46 03/28/17 15:46 03/28/17 15:46 03/28/17 15:46 Intake and Output: 03/28/17 03/28/17 06:59 18:59 Intake Total 510 Output Total 1 Balance 509 - Medications Medications: Current Medications Acetaminophen (Tylenol 325mg Tab) 650 mg PO Q6 PRN PRN Reason: Pain, Mild (1-3) Last Admin: 03/26/17 20:21 Dose: 650 mg Docusate Sodium (Colace) 100 mg PO BID [facility] Last Admin: 03/28/17 17:39 Dose: 100 mg Enoxaparin Sodium (Lovenox) 40 mg SC DAILY [facility] Last Admin: 03/28/17 10:07 Dose: 40 mg Ferric Sodium Gluconate Complex (Ferrlecit) 125 mg IVPB DAILY [facility] Stop: 03/31/17 17:46 Last Admin: 03/28/17 10:10 Dose: 125 mg Folic Acid (Folic Acid) 1 mg PO DAILY [facility] Last Admin: 03/28/17 10:15 Dose: 1 mg Furosemide (Lasix) 20 mg PO DAILY [facility] Last Admin: 03/28/17 10:15 Dose: 20 mg Hydrochlorothiazide (Hydrodiuril) 25 mg PO DAILY [facility] Last Admin: 03/28/17 10:11 Dose: 25 mg Insulin Human Isoph/Insulin Regular (Novolin 70/30 (70/30 Units/Ml) 10 Ml) 20 units SC Q12 [facility] Last Admin: 03/28/17 10:08 Dose: 20 units Insulin Human Regular (Novolin R) 0 unit SC ACHS [facility] PRN Reason: Protocol Last Admin: 03/28/17 16:44 Dose: Not Given Ketorolac Tromethamine (Toradol) 15 mg IVP Q6 PRN PRN Reason: Pain, severe (8-10) Last Admin: 03/26/17 21:00 Dose: 15 mg Lactic Acid (Lac-Hydrin 12% Lotion (225 G)) 0 gm EXT DAILY [facility] Last Admin: 03/28/17 10:12 Dose: 1 applic Levothyroxine Sodium (Synthroid) 25 mcg PO DAILY@0630 [facility] Last Admin: 03/28/17 05:31 Dose: 25 mcg Losartan Potassium (Cozaar) 100 mg PO DAILY [facility] Last Admin: 03/28/17 10:11 Dose: 100 mg Metformin HCl (Glucophage) 500 mg PO BID [facility] Last Admin: 03/28/17 17:39 Dose: 500 mg Pantoprazole Sodium (Protonix Ec Tab) 40 mg PO DAILY [facility] Last Admin: 03/28/17 10:09 Dose: 40 mg Polyethylene Glycol (Miralax) 17 gm PO DAILY [facility] Last Admin: 03/28/17 10:11 Dose: 17 gm Sitagliptin Phosphate (Januvia) 50 mg PO DAILY [facility] Last Admin: 03/28/17 10:09 Dose: 50 mg Zolpidem Tartrate (Ambien) 5 mg PO HS PRN PRN Reason: Insomnia Last Admin: 03/27/17 22:31 Dose: 5 mg - Labs Labs: 03/28/17 06:07 03/28/17 06:07 PT 11.9 SECONDS (9.7-12.2) 03/22/17 17:04 INR 1.1 03/22/17 17:04 APTT 25 SECONDS (21-34) 03/22/17 17:04 Attending/Attestation - Attestation I have personally seen and examined this patient.: Yes I have fully participated in the care of the patient.: Yes I have reviewed all pertinent clinical information, including history, physical exam and plan: Yes Notes (Text): 03/28/17 18:04 Medical attending: Patient was seen and examined by me, agrees the above note by medical office administrator. The patient was not under any acute distress when we saw her, her dressings over both feet had been changed earlier in the morning. At this time will continue with IV biotics however very likely this is a element of chronic venous stasis that is occurring. She needs to elevate her legs. Very likely would benefit from Alexander wrapping to be placed on the morning left office in the afternoon. Were currently pending on rehabilitation placement at this thank you Braulio Doss
[2017-03-29 07:22] LABS: HEMATOCRIT 30.3 % (34.0-47.0); MEAN CELL VOLUME 86.6 fL (81.0-99.0); MEAN CORPUSCULAR HEMOGLOBIN 28.7 pg (27.0-31.0); MEAN CORPUSCULAR HGB CONC 33.1 g/dL (33.0-37.0); MEAN PLATELET VOLUME 8.2 fL (7.2-11.7); RED CELL DISTRIBUTION WIDTH 14.8 % (11.5-14.5); WHITE BLOOD COUNT 7.8 K/uL (4.8-10.8)
[2017-03-29 07:47] LABS: CHLORIDE 98 mmol/L (98-107); SODIUM 135 mmol/L (132-148)
[2017-03-29 07:49] LABS: BILIRUBIN,TOTAL 0.5 mg/dL (0.2-1.3); GFR AFRICAN-AMERICAN > 60
[2017-03-29 07:50] LABS: AST/SGOT 27 U/L (14-36); BLOOD UREA NITROGEN 19 mg/dL (7-17); CARBON DIOXIDE 27 mmol/L (22-30)
[2017-03-29 07:51] LABS: ALKALINE PHOSPHATASE 123 U/L (38-126); ALT/SGPT 31 U/L (9-52); CALCIUM 9.3 mg/dl (8.6-10.4); GLUCOSE,RANDOM 120 mg/dL (65-105)
[2017-03-29] MEDS: Levothyroxine 25 MCG TAB PO SCH (08:12)
[2017-03-29] MEDS: (Novolin R) Insulin Human Regular 100 units/ml vial SC SCH ×4 (08:44→23:18)
[2017-03-29] MEDS: Ferric Sodium Gluconat Complex 62.5 mg/5 ml Vial IVPB SCH (10:32)
[2017-03-29] MEDS: POLYETHYLENE GLYCOL 3350 17 GM/Dose PACKET PO SCH (10:32)
[2017-03-29] MEDS: (Novolin 70/30) NPH/Regular 70/30 Units/ml 10 ml vial SC SCH ×2 (10:33→22:16)
[2017-03-29] MEDS: Pantoprazole 40 mg EC Tab PO SCH (10:33)
[2017-03-29] MEDS: Ammonium Lactate 12% Lotion (225 g) EXT SCH (10:34)
[2017-03-29] MEDS: Enoxaparin 40 mg Syringe SC SCH (10:34)
--- NOTE | 2017-03-29 14:19 | CP.PCM.DIS ---
<Sandhya Pendleton - Last Filed: 03/29/17 14:57> Provider - Provider Date of Admission: 03/22/17 18:30 Attending physician: Martin Bowers MD Primary care physician: Dr. Lantigua Time Spent in preparation of Discharge (in minutes): 45 Diagnosis - Discharge Diagnosis (1) Cellulitis of lower extremity Status: Acute Comment: secondary to chronic venous stasis, keep wounds clean (2) Poorly controlled diabetes mellitus Status: Resolved Comment: continue medications for diabetes (3) Hypertension Status: Acute Comment: continue medications (4) Hypothyroidism Status: Acute Comment: continue synthroid (5) Iron deficiency anemia Status: Acute Comment: continue [facility] Hospital Course - Lab Results Lab Results: Most Recent Lab Values WBC 7.8 K/uL (4.8-10.8) 03/29/17 07:03 RBC 3.49 Mil/uL (3.80-5.20) L 03/29/17 07:03 Hgb 10.0 g/dL (11.0-16.0) L 03/29/17 07:03 Hct 30.3 % (34.0-47.0) L 03/29/17 07:03 MCV 86.6 fL (81.0-99.0) 03/29/17 07:03 MCH 28.7 pg (27.0-31.0) 03/29/17 07:03 MCHC 33.1 g/dL (33.0-37.0) 03/29/17 07:03 RDW 14.8 % (11.5-14.5) H 03/29/17 07:03 Plt Count 348 K/uL (130-400) 03/29/17 07:03 MPV 8.2 fL (7.2-11.7) 03/29/17 07:03 Neut % (Auto) 69.1 % (50.0-75.0) 03/28/17 06:07 Lymph % (Auto) 12.6 % (20.0-40.0) L 03/28/17 06:07 Candler % (Auto) 10.6 % (0.0-10.0) H 03/28/17 06:07 Eos % (Auto) 7.5 % (0.0-4.0) H 03/28/17 06:07 Baso % (Auto) 0.2 % (0.0-2.0) 03/28/17 06:07 Neut # 5.6 K/uL (1.8-7.0) 03/28/17 06:07 Lymph # 1.0 K/uL (1.0-4.3) 03/28/17 06:07 Candler # 0.9 K/uL (0.0-0.8) H 03/28/17 06:07 Eos # 0.6 K/uL (0.0-0.7) 03/28/17 06:07 Baso # 0.0 K/uL (0.0-0.2) 03/28/17 06:07 Neutrophils % (Manual) 82 % (50-75) H 03/23/17 06:22 Lymphocytes % (Manual) 7 % (20-40) L 03/23/17 06:22 Monocytes % (Manual) 6 % (0-10) 03/23/17 06:22 Eosinophils % (Manual) 3 % (0-4) 03/23/17 06:22 Basophils % (Manual) 2 % (0-2) 03/23/17 06:22 Platelet Estimate Normal (NORMAL) 03/23/17 06:22 Hypochromasia (manual) Slight 03/23/17 06:22 Poikilocytosis (manual Slight 03/23/17 06:22 Anisocytosis (manual) Slight 03/23/17 06:22 ESR 72 mm/hr (0-20) H 03/22/17 17:04 PT 11.9 SECONDS (9.7-12.2) 03/22/17 17:04 INR 1.1 03/22/17 17:04 APTT 25 SECONDS (21-34) 03/22/17 17:04 Sodium 135 mmol/L (132-148) 03/29/17 07:03 Potassium 4.0 mmol/L (3.6-5.2) 03/29/17 07:03 Chloride 98 mmol/L (98-107) 03/29/17 07:03 Carbon Dioxide 27 mmol/L (22-30) 03/29/17 07:03 Anion Gap 15 (10-20) 03/29/17 07:03 BUN 19 mg/dL (7-17) H 03/29/17 07:03 Creatinine 1.0 MG/DL (0.7-1.2) 03/29/17 07:03 Est GFR ( Amer) > 60 03/29/17 07:03 Est GFR (Non-Af Amer) 53 03/29/17 07:03 POC Glucose (mg/dL) 288 mg/dL (65-110) H 03/29/17 11:08 Random Glucose 120 mg/dL (65-105) H 03/29/17 07:03 Hemoglobin A1c 9.7 % (4.2-6.5) H 03/23/17 06:22 Calcium 9.3 mg/dl (8.6-10.4) 03/29/17 07:03 Phosphorus 4.2 mg/dL (2.5-4.5) 03/27/17 07:31 Magnesium 2.0 mg/dL (1.6-2.3) 03/27/17 07:31 Iron 25 ug/dL (37-170) L 03/23/17 06:22 TIBC 273 ug/dL (250-450) 03/23/17 06:22 % Saturation 9 (20-55) L 03/23/17 06:22 Ferritin 40.6 ng/mL 03/23/17 06:22 Total Bilirubin 0.5 mg/dL (0.2-1.3) 03/29/17 07:03 AST 27 U/L (14-36) 03/29/17 07:03 ALT 31 U/L (9-52) 03/29/17 07:03 Alkaline Phosphatase 123 U/L (38-126) 03/29/17 07:03 NT-Pro-B Natriuret Pep 272 pg/mL (0-900) 03/22/17 17:04 Total Protein 7.0 g/dL (6.3-8.3) 03/29/17 07:03 Albumin 3.4 g/dL (3.5-5.0) L 03/29/17 07:03 Globulin 3.6 gm/dL (2.2-3.9) 03/29/17 07:03 Albumin/Globulin Ratio 1.0 (1.0-2.1) 03/29/17 07:03 Vancomycin Trough 15.7 ug/mL (5.0-10.0) H 03/24/17 17:00 Serum Ketones Negative (NEGATIVE) 03/22/17 17:04 - Hospital Course Hospital Course: "Chief Complaint: "Legs hurt" 81 year old female with past medical history of diabetes type II who presents to the ED from home by ambulance due to leg swelling and redness. Patient is a bad historian as she does not know who called the ambulance. Patient states she noticed both of her lower legs become red yesterday. Patient states her legs are only painful to touch. Patient states her legs are normally swollen at the end of the day. Per patient she has not been able to walk for the past 1-2 months but she normally uses a walker for assistance. Patient lives with her . Patient states she has never been previously admitted for her legs. Patient denies fever, headache, shortness of breath, chest pain, nausea, vomiting, diarrhea, or constipation." Patient was found to have cellulitis of the lower legs bilaterally, uncontrolled diabetes, and anemia. Chest xray on 03/22 showed : Limited evaluation of the left costophrenic angle. Small left pleural effusion cannot be excluded. No significant pleural effusion suspect. Appearance could well be due to the large body habitus and prominent soft tissues in portable technique. No consolidation appreciated. Patient was admitted to the hospital and started on Vancomycin IVPB 1G Q12h and Zosyn 3.375gm Q6h. Venous dopplers showed no abnormal findings of examined veins. Ferrlecit 125mg IVPB was started daily and CBC monitored for patient's anemia. Home medication Synthroid was continued for patient's hypothyroidism. Home medications, HCTZ 25mg PO daily, Losartan 100 mg PO daily and Lasix 20 mg PO daily, for hypertension were continued. Patient was put on Insulin Sliding Scale, Metformin 500mg BID, Januvia 50mg PO Daily, and Novolin 70-30 20 units BID for Diabetes. On 03/24 blood cultures were negative for 24 hours. Toradol was started for pain. Wound care was consulted and began daily dressing changes. Patient to go to subacute rehab facility pending insurance approval. Patient was sent to rehab facility and should take the following medications: Ammonium lactate 12% lotion for legs Furosemide 20mg PO daily Hydrochlorothiazide 25 mg PO daily Novolin 70/30 20 U SC Q12 Levothyroxine 25mcg PO daily Losartan 100 mg PO daily Metformin 500 mg PO BID Pantoprazole 40 mg PO daily Sitagliptin 50 mg PO daily Vancomycin 1 mg/ 200 ml .9% NaCl daily for 2 days Zolpidem 5 mg PO HS For ulcers on legs patient should have aloevista applied 3 times per day. Also medihoney should be applied daily. EVA wraps should be placed around both lower legs in the morning and removed before bed each day. Patient was cleared for discharge by Dr. Doss. Patient should follow up with PMD , Dr. Lantigua within one week of discharge from rehab. This is a summary of the hospital course. Please see chart for full details. Discharge Exam - Head Exam Head Exam: ATRAUMATIC, NORMAL INSPECTION, NORMOCEPHALIC - Eye Exam Eye Exam: EOMI, Normal appearance, PERRL Pupil Exam: NORMAL ACCOMODATION, PERRL - ENT Exam ENT Exam: Mucous Membranes Moist - Neck Exam Neck exam: Full Rom - Respiratory Exam Respiratory Exam: Clear to PA & Lateral, NORMAL BREATHING PATTERN, UNREMARKABLE. absent: Rales, Rhonchi, Respiratory Distress, Stridor - Cardiovascular Exam Cardiovascular Exam: REGULAR RHYTHM, RRR, +S1. absent: Gallop, Rubs, Systolic Murmur - GI/Abdominal Exam GI & Abdominal Exam: Normal Bowel Sounds. absent: Distended, Firm, Guarding, Tenderness - Extremities Exam Extremities exam: full ROM Additional comments: both lower legs in dressings, wrapped, dry and intact - Back Exam Back exam: NORMAL INSPECTION. absent: CVA tenderness (L), CVA tenderness (R), rash noted - Neurological Exam Neurological exam: Alert, Oriented x3 - Psychiatric Exam Psychiatric exam: Normal Affect, Normal Mood - Skin Skin Exam: Warm Additional comments: leg ulcers on bilateral lower legs with erythema. stage 2 thigh ulcer Discharge Plan - Discharge Medications Prescriptions: Ammonium Lactate 12% [Lac-Hydrin 12% Lotion (225 g)] 12 % EXT DAILY #1 bottle Vancomycin/0.9 % Sod Chloride [Vancomycin 1 G/200Ml-0.9% NaCl] 1 gm IV DAILY #2 [id number] - Follow Up Plan Condition: FAIR Disposition: REHAB FACILITY/REHAB UNIT Instructions: Cellulitis (DC), Cellulitis (GEN), Diabetes Mellitus Type 2 in Adults (DC), Meal Planning with the Plate Method (DC), Chronic Hypertension (DC) , Low Sodium Diet (DC) Additional Instructions: Patient stable for discharge as per Dr. Doss. Patient should continue medications at subacute rehab as listed below: Lasix 20 mg PO daily Hydrocholorthiazide 25 mg PO daily Novolin 70/30 units/ ml 20 units sc Q12 [facility] Synthroid 25mcg tab PO daily Cozaar 100 mg PO daily Metformin 500 mg PO BID Protonix 40 mg po daily Ambien 5 mg PO HS Ammonium Lactate 12% lotion apply daily Vancomycin 1 gm/ NS q12h for 2 days For ulcers on legs patient should have aloevista applied 3 times per day. Also medihoney should be applied daily. EVA wraps should be placed around both lower legs in the morning and removed before bed each day. Patient should follow up with primary medical doctor, Dr. Lantigua, once discharged from subacute rehab. Patient should return to ED immediately if symptoms return or worsen. Instructions discussed with patient who understood and agreed. Referrals: Ariel Lantigua MD [Non-Staff] - <Braulio Doss H - Last Filed: 03/29/17 16:09> Provider - Provider Date of Admission: 03/22/17 18:30 Attending physician: Martin Bowers MD Hospital Course - Lab Results Lab Results: Most Recent Lab Values WBC 7.8 K/uL (4.8-10.8) 03/29/17 07:03 RBC 3.49 Mil/uL (3.80-5.20) L 03/29/17 07:03 Hgb 10.0 g/dL (11.0-16.0) L 03/29/17 07:03 Hct 30.3 % (34.0-47.0) L 03/29/17 07:03 MCV 86.6 fL (81.0-99.0) 03/29/17 07:03 MCH 28.7 pg (27.0-31.0) 03/29/17 07:03 MCHC 33.1 g/dL (33.0-37.0) 03/29/17 07:03 RDW 14.8 % (11.5-14.5) H 03/29/17 07:03 Plt Count 348 K/uL (130-400) 03/29/17 07:03 MPV 8.2 fL (7.2-11.7) 03/29/17 07:03 Neut % (Auto) 69.1 % (50.0-75.0) 03/28/17 06:07 Lymph % (Auto) 12.6 % (20.0-40.0) L 03/28/17 06:07 Candler % (Auto) 10.6 % (0.0-10.0) H 03/28/17 06:07 Eos % (Auto) 7.5 % (0.0-4.0) H 03/28/17 06:07 Baso % (Auto) 0.2 % (0.0-2.0) 03/28/17 06:07 Neut # 5.6 K/uL (1.8-7.0) 03/28/17 06:07 Lymph # 1.0 K/uL (1.0-4.3) 03/28/17 06:07 Candler # 0.9 K/uL (0.0-0.8) H 03/28/17 06:07 Eos # 0.6 K/uL (0.0-0.7) 03/28/17 06:07 Baso # 0.0 K/uL (0.0-0.2) 03/28/17 06:07 Neutrophils % (Manual) 82 % (50-75) H 03/23/17 06:22 Lymphocytes % (Manual) 7 % (20-40) L 03/23/17 06:22 Monocytes % (Manual) 6 % (0-10) 03/23/17 06:22 Eosinophils % (Manual) 3 % (0-4) 03/23/17 06:22 Basophils % (Manual) 2 % (0-2) 03/23/17 06:22 Platelet Estimate Normal (NORMAL) 03/23/17 06:22 Hypochromasia (manual) Slight 03/23/17 06:22 Poikilocytosis (manual Slight 03/23/17 06:22 Anisocytosis (manual) Slight 03/23/17 06:22 ESR 72 mm/hr (0-20) H 03/22/17 17:04 PT 11.9 SECONDS (9.7-12.2) 03/22/17 17:04 INR 1.1 03/22/17 17:04 APTT 25 SECONDS (21-34) 03/22/17 17:04 Sodium 135 mmol/L (132-148) 03/29/17 07:03 Potassium 4.0 mmol/L (3.6-5.2) 03/29/17 07:03 Chloride 98 mmol/L (98-107) 03/29/17 07:03 Carbon Dioxide 27 mmol/L (22-30) 03/29/17 07:03 Anion Gap 15 (10-20) 03/29/17 07:03 BUN 19 mg/dL (7-17) H 03/29/17 07:03 Creatinine 1.0 MG/DL (0.7-1.2) 03/29/17 07:03 Est GFR ( Amer) > 60 03/29/17 07:03 Est GFR (Non-Af Amer) 53 03/29/17 07:03 POC Glucose (mg/dL) 288 mg/dL (65-110) H 03/29/17 11:08 Random Glucose 120 mg/dL (65-105) H 03/29/17 07:03 Hemoglobin A1c 9.7 % (4.2-6.5) H 03/23/17 06:22 Calcium 9.3 mg/dl (8.6-10.4) 03/29/17 07:03 Phosphorus 4.2 mg/dL (2.5-4.5) 03/27/17 07:31 Magnesium 2.0 mg/dL (1.6-2.3) 03/27/17 07:31 Iron 25 ug/dL (37-170) L 03/23/17 06:22 TIBC 273 ug/dL (250-450) 03/23/17 06:22 % Saturation 9 (20-55) L 03/23/17 06:22 Ferritin 40.6 ng/mL 03/23/17 06:22 Total Bilirubin 0.5 mg/dL (0.2-1.3) 03/29/17 07:03 AST 27 U/L (14-36) 03/29/17 07:03 ALT 31 U/L (9-52) 03/29/17 07:03 Alkaline Phosphatase 123 U/L (38-126) 03/29/17 07:03 NT-Pro-B Natriuret Pep 272 pg/mL (0-900) 03/22/17 17:04 Total Protein 7.0 g/dL (6.3-8.3) 03/29/17 07:03 Albumin 3.4 g/dL (3.5-5.0) L 03/29/17 07:03 Globulin 3.6 gm/dL (2.2-3.9) 03/29/17 07:03 Albumin/Globulin Ratio 1.0 (1.0-2.1) 03/29/17 07:03 Vancomycin Trough 15.7 ug/mL (5.0-10.0) H 03/24/17 17:00 Serum Ketones Negative (NEGATIVE) 03/22/17 17:04 Attending/Attestation - Attestation I have personally seen and examined this patient.: Yes I have fully participated in the care of the patient.: Yes I have reviewed all pertinent clinical information, including history, physical exam and plan: Yes Notes (Text): 03/29/17 16:08 Medical Attending: Patient was seen and examined by me. Agree with the above note by the resident. The patient will need to continue with daily foot washings with alovera cream as well as medihoney and kerlix wrap. Also in the mornings to use eva wraps as well as take them off at night. She will be on IV abx for a few more days at [facility]. thank you Braulio Doss
[2017-03-30] MEDS: Levothyroxine 25 MCG TAB PO SCH (06:26)
[2017-03-30] MEDS: (Novolin R) Insulin Human Regular 100 units/ml vial SC SCH ×4 (08:19→21:49)
[2017-03-30] MEDS: Ferric Sodium Gluconat Complex 62.5 mg/5 ml Vial IVPB SCH (10:53)
[2017-03-30] MEDS: (Novolin 70/30) NPH/Regular 70/30 Units/ml 10 ml vial SC SCH ×2 (10:54→21:52)
[2017-03-30] MEDS: Pantoprazole 40 mg EC Tab PO SCH (10:55)
[2017-03-30] MEDS: Enoxaparin 40 mg Syringe SC SCH (10:55)
[2017-03-30] MEDS: POLYETHYLENE GLYCOL 3350 17 GM/Dose PACKET PO SCH (10:55)
[2017-03-30] MEDS: Ammonium Lactate 12% Lotion (225 g) EXT SCH (10:55)
[2017-03-31] MEDS: Levothyroxine 25 MCG TAB PO SCH (05:47)
[2017-03-31] MEDS: (Novolin R) Insulin Human Regular 100 units/ml vial SC SCH ×3 (07:38→22:05)
[2017-03-31] MEDS: Pantoprazole 40 mg EC Tab PO SCH (10:44)
[2017-03-31] MEDS: POLYETHYLENE GLYCOL 3350 17 GM/Dose PACKET PO SCH (10:44)
[2017-03-31] MEDS: Ferric Sodium Gluconat Complex 62.5 mg/5 ml Vial IVPB SCH (10:44)
[2017-03-31] MEDS: (Novolin 70/30) NPH/Regular 70/30 Units/ml 10 ml vial SC SCH ×2 (10:49→22:11)
[2017-04-01] MEDS: Levothyroxine 25 MCG TAB PO SCH (05:33)
[2017-04-01] MEDS: (Novolin R) Insulin Human Regular 100 units/ml vial SC SCH ×4 (07:13→21:40)
[2017-04-01 07:16] LABS: BASO % 0.3 % (0.0-2.0); EOS # 0.5 K/uL (0.0-0.7); EOS % 6.2 % (0.0-4.0); HEMATOCRIT 32.6 % (34.0-47.0); LYMPH # 1.3 K/uL (1.0-4.3); LYMPH % 16.5 % (20.0-40.0); MEAN CORPUSCULAR HEMOGLOBIN 28.1 pg (27.0-31.0); MEAN PLATELET VOLUME 8.7 fL (7.2-11.7); MONO # 1.2 K/uL (0.0-0.8); MONO % 14.7 % (0.0-10.0); WHITE BLOOD COUNT 7.8 K/uL (4.8-10.8)
[2017-04-01 08:25] LABS: CHLORIDE 96 mmol/L (98-107); SODIUM 135 mmol/L (132-148)
[2017-04-01 08:27] LABS: ALKALINE PHOSPHATASE 92 U/L (38-126); AST/SGOT 22 U/L (14-36); BILIRUBIN,TOTAL 0.6 mg/dL (0.2-1.3); BLOOD UREA NITROGEN 30 mg/dL (7-17); CARBON DIOXIDE 27 mmol/L (22-30); GFR AFRICAN-AMERICAN > 60
[2017-04-01 08:28] LABS: ALT/SGPT 26 U/L (9-52); CALCIUM 8.5 mg/dl (8.6-10.4); GLUCOSE,RANDOM 126 mg/dL (65-105); MAGNESIUM 1.9 mg/dL (1.6-2.3); PHOSPHOROUS 4.3 mg/dL (2.5-4.5)
[2017-04-01 08:34] LABS: POTASSIUM 3.9 mmol/L (3.6-5.2)
[2017-04-01] MEDS: (Novolin 70/30) NPH/Regular 70/30 Units/ml 10 ml vial SC SCH ×2 (09:49→21:44)
[2017-04-01] MEDS: Pantoprazole 40 mg EC Tab PO SCH (09:51)
[2017-04-01] MEDS: Ammonium Lactate 12% Lotion (225 g) EXT SCH (09:54)
[2017-04-01] MEDS: POLYETHYLENE GLYCOL 3350 17 GM/Dose PACKET PO SCH (09:55)
--- NOTE | 2017-04-01 20:14 | CP.PCM.PN ---
<RaymondDiana haquevan E - Last Filed: 04/01/17 20:09> Subjective - Date & Time of Evaluation Date of Evaluation: 04/01/17 Time of Evaluation: 10:30 - Subjective Subjective: Medicine Note (PGY 1): Dr. Doss's service Patient was seen and examined at bedside. Patient had no acute events overnight. Patient had no new complaints. Patient denies chest pain, sob, fever , chills, diarrhea. Patient's low extremities dressing was changed. Patient was planned for discharge on 03/29/17 to [facility] but was unable to be obtain placement due to social issues. Patient's placement at [facility] was confirmed today. Objective - Vital Signs/Intake and Output Vital Signs (last 24 hours): Temp Pulse Resp BP Pulse Ox 98.0 F 81 20 126/67 98 04/01/17 16:55 04/01/17 16:55 04/01/17 16:55 04/01/17 16:55 04/01/17 16:55 Intake and Output: 04/01/17 04/02/17 18:59 06:59 Intake Total 440 Output Total 1 Balance 439 - Medications Medications: Current Medications Acetaminophen (Tylenol 325mg Tab) 650 mg PO Q6 PRN PRN Reason: Pain, Mild (1-3) Last Admin: 04/01/17 12:43 Dose: 650 mg Docusate Sodium (Colace) 100 mg PO BID [facility] Last Admin: 04/01/17 17:56 Dose: Not Given Folic Acid (Folic Acid) 1 mg PO DAILY [facility] Last Admin: 04/01/17 09:51 Dose: 1 mg Furosemide (Lasix) 20 mg PO DAILY [facility] Last Admin: 04/01/17 09:51 Dose: 20 mg Hydrochlorothiazide (Hydrodiuril) 25 mg PO DAILY [facility] Last Admin: 04/01/17 09:51 Dose: 25 mg Insulin Human Isoph/Insulin Regular (Novolin 70/30 (70/30 Units/Ml) 10 Ml) 20 units SC Q12 [facility] Last Admin: 04/01/17 09:49 Dose: 20 units Insulin Human Regular (Novolin R) 0 unit SC ACHS [facility] PRN Reason: Protocol Last Admin: 04/01/17 16:32 Dose: 2 unit Lactic Acid (Lac-Hydrin 12% Lotion (225 G)) 0 gm EXT DAILY [facility] Last Admin: 04/01/17 09:54 Dose: 1 applic Levothyroxine Sodium (Synthroid) 25 mcg PO DAILY@0630 [facility] Last Admin: 04/01/17 05:33 Dose: 25 mcg Losartan Potassium (Cozaar) 100 mg PO DAILY [facility] Last Admin: 04/01/17 09:52 Dose: 100 mg Metformin HCl (Glucophage) 500 mg PO BID [facility] Last Admin: 04/01/17 17:56 Dose: 500 mg Pantoprazole Sodium (Protonix Ec Tab) 40 mg PO DAILY [facility] Last Admin: 04/01/17 09:51 Dose: 40 mg Polyethylene Glycol (Miralax) 17 gm PO DAILY [facility] Last Admin: 04/01/17 09:55 Dose: Not Given Sitagliptin Phosphate (Januvia) 50 mg PO DAILY [facility] Last Admin: 04/01/17 09:51 Dose: 50 mg Zolpidem Tartrate (Ambien) 5 mg PO HS PRN PRN Reason: Insomnia Last Admin: 03/27/17 22:31 Dose: 5 mg - Labs Labs: 04/01/17 06:51 04/01/17 06:51 PT 11.9 SECONDS (9.7-12.2) 03/22/17 17:04 INR 1.1 03/22/17 17:04 APTT 25 SECONDS (21-34) 03/22/17 17:04 - Constitutional Appears: Well, No Acute Distress - Head Exam Head Exam: NORMAL INSPECTION, NORMOCEPHALIC - Eye Exam Eye Exam: EOMI, Normal appearance - ENT Exam ENT Exam: Mucous Membranes Moist, Normal Exam - Respiratory Exam Respiratory Exam: Clear to Ausculation Bilateral, NORMAL BREATHING PATTERN - Cardiovascular Exam Cardiovascular Exam: REGULAR RHYTHM, +S1, +S2 - GI/Abdominal Exam GI & Abdominal Exam: Soft, Normal Bowel Sounds - Extremities Exam Extremities Exam: Calf Tenderness (B/L venous stasis ) - Neurological Exam Neurological Exam: Alert, Awake, Oriented x3 - Psychiatric Exam Psychiatric exam: Normal Affect, Normal Mood - Skin Skin Exam: Dry, Normal Color, Warm Assessment and Plan (1) Cellulitis of lower extremity Assessment & Plan: 03/26: nursing communication placed for daily dressing changes 03/25: Trough 15.7, Negative culture for x48 hours. Continue current regimen. Wound care on board. Vancomycin IVPB 1G Q12h Zosyn 3.375gm Q6h f/u blood culture No leukocytosis CBC daily (HgB 9.3 on 03/23) Monitor daily for fevers venous dopplers: no abnormal findings of examined veins PT Wound care ordered Status: Acute (2) Poorly controlled diabetes mellitus Assessment & Plan: hemoglobin A1C 9.7 Insulin Sliding Scale Accu Checks Metformin 500mg BID Januvia 50mg PO Daily Novolin 70-30 20 units BID Status: Resolved (3) Iron deficiency anemia Assessment & Plan: monitor H/H iron 25 TIBC 273 Ferritin 40.6 Ferrlecit 125mg IVPB daily Status: Acute (4) Hypothyroidism Assessment & Plan: Continue home med Synthroid 25mcg PO Daily Status: Acute (5) Hypertension Assessment & Plan: Continue home medications: Lasix 20 mg PO daily HCTZ 25mg PO daily Losartan 100 mg PO daily Lasix 20 mg PO daily Status: Acute (6) Pressure ulcer of thigh, stage 2 Assessment & Plan: Patient admitted to hospital with stage 2 pressure ulcer on 03/23 Wound care consulted, help appreciated Nursing to change dressings daily. Dressing changed today (04/01/17) Status: Acute (7) Morbid obesity Assessment & Plan: BMI: 54.9 dietitian consulted, help appreciated Status: Acute (8) Prophylactic measure Assessment & Plan: Lovenox 40 mg SC daily Protonix 40 mg PO daily Status: Acute <Braulio Doss H - Last Filed: 04/13/17 18:10> Objective - Vital Signs/Intake and Output Vital Signs (last 24 hours): Temp Pulse Resp BP Pulse Ox 97.4 F L 79 21 101/59 L 98 04/02/17 15:30 04/02/17 15:30 04/02/17 15:30 04/02/17 15:30 04/02/17 15:30 - Labs Labs: 04/02/17 07:01 04/02/17 07:01 PT 11.9 SECONDS (9.7-12.2) 03/22/17 17:04 INR 1.1 03/22/17 17:04 APTT 25 SECONDS (21-34) 03/22/17 17:04 Attending/Attestation - Attestation I have personally seen and examined this patient.: Yes I have fully participated in the care of the patient.: Yes I have reviewed all pertinent clinical information, including history, physical exam and plan: Yes
[2017-04-02] MEDS: Levothyroxine 25 MCG TAB PO SCH (05:47)
[2017-04-02 07:11] LABS: BASO % 0.3 % (0.0-2.0); EOS # 0.6 K/uL (0.0-0.7); EOS % 7.7 % (0.0-4.0); HEMATOCRIT 35.1 % (34.0-47.0); LYMPH # 1.4 K/uL (1.0-4.3); MEAN CELL VOLUME 88.2 fL (81.0-99.0); MEAN CORPUSCULAR HEMOGLOBIN 27.8 pg (27.0-31.0); MEAN CORPUSCULAR HGB CONC 31.6 g/dL (33.0-37.0); MEAN PLATELET VOLUME 8.6 fL (7.2-11.7); MONO % 12.4 % (0.0-10.0); NRBC % 0.1 % (0.0-2.0); RED CELL DISTRIBUTION WIDTH 16.2 % (11.5-14.5); WHITE BLOOD COUNT 8.4 K/uL (4.8-10.8)
[2017-04-02 07:29] LABS: POTASSIUM 3.9 mmol/L (3.6-5.2)
[2017-04-02 07:31] LABS: BILIRUBIN,TOTAL 0.6 mg/dL (0.2-1.3)
[2017-04-02 07:32] LABS: CALCIUM 9.5 mg/dl (8.6-10.4); PHOSPHOROUS 4.3 mg/dL (2.5-4.5); TOTAL PROTEIN 7.4 g/dL (6.3-8.3)
[2017-04-02] MEDS: (Novolin R) Insulin Human Regular 100 units/ml vial SC SCH ×3 (08:40→14:04)
[2017-04-02] MEDS: Ammonium Lactate 12% Lotion (225 g) EXT SCH (11:04)
[2017-04-02] MEDS: POLYETHYLENE GLYCOL 3350 17 GM/Dose PACKET PO SCH (11:04)
[2017-04-02] MEDS: (Novolin 70/30) NPH/Regular 70/30 Units/ml 10 ml vial SC SCH (11:05)
[2017-04-02] MEDS: Pantoprazole 40 mg EC Tab PO SCH (11:05)
[2017-04-02 17:47] VITALS: BP 101/59; PULSE 79; RESP 21; TEMP 97.4; O2SAT 98
== END 2017-04-02 17:50 | DRG 593 ==
LOC: C.ER 15:46 → C.9E 17:43 → OBSVTOIN 18:30 → C.5T 21:13
PROVIDERS: ADMIT Internal Medicine; ATTEND Internal Medicine
DX: L89.892 Pressure ulcer of other site, stage 2 (principal); L97.819 Non-pressure chronic ulcer of other part of right lower leg with unspecified severity; E11.65 Type 2 diabetes mellitus with hyperglycemia; L03.115 Cellulitis of right lower limb; Z68.43 Body mass index [BMI] 50.0-59.9, adult; L03.116 Cellulitis of left lower limb; L97.829 Non-pressure chronic ulcer of other part of left lower leg with unspecified severity; M79.89 Other specified soft tissue disorders; D50.9 Iron deficiency anemia, unspecified; I87.8 Other specified disorders of veins; I10 Essential (primary) hypertension; E03.9 Hypothyroidism, unspecified; Z79.84 Long term (current) use of oral hypoglycemic drugs; Z79.899 Other long term (current) drug therapy; K59.00 Constipation, unspecified; E66.01 Morbid (severe) obesity due to excess calories